=== PATIENT | male | born 1930 | race Caucasian/White ===

== ENCOUNTER 2016-05-29 10:46 | Outpatient (RCR) | payer MEDICARE, OTHER ==
--- OUTSIDE RECORDS SUMMARY | 2016-04-17 10:00 | XMS REPORT | Continuity of Care Document ---
Author Author [facility] Organization [facility] Address Unknown Phone Unavailable Care Team Providers Care Group Therapy Counselor Name Role Phone NO, LOCAL PHYSICIAN PCP Unavailable Insurance Providers Payer Name Policy Number Subscriber Name Relationship Wps Medicare [id number] Tessa Nix 18 Self / Same As Patient [employer] [employer] [id number] Tessa Nix 18 Self / Same As Patient Advance Directives Directive Response Recorded Date/Time Advance Directives Yes 08/07/14 7:10am Health Care Power of Photographic Spotter Y PT STATES HAS POWER OF CONTENT STRATEGY LEAD 7:10am Organ Donor No 08/07/14 7:10am Resuscitation Status Full Code 08/07/14 7:10am Problems Medical Problems Problem Onset Date Status Leukocytosis Unknown Active Cholecystitis, acute Unknown Active Leukocytosis Unknown Active Fall from slipping on wet surface Unknown Active Traumatic closed nondisplaced fracture of one rib of left side Unknown Active Sprain of left wrist Unknown Active Fall from slipping on wet surface Unknown Active Medications Medication Dose Route Sig Days/Qty Instructions Order Date Discontinued Date Status Metoprolol Succinate 04/05/08 11/16/12 Discontinued Simvastatin 04/05/08 11/16/12 Discontinued Omeprazole 04/05/08 11/01/12 Discontinued Aspirin 81 Mg PO DAILY 04/05/08 Active Lisinopril 10 04/05/08 11/16/12 Discontinued Multivitamins W-Minerals/Lut 1 Tab PO DAILY 12/05/10 Active Codeine Phos/Acetaminophen 1 Tab PO q 4 hours prn pain. 14 Qty 11/01/12 Discontinued Fish Oil 1,000 Mg PO TWICE A DAY 2000 in am 1000 pm 11/01/12 01/27/14 Discontinued Potassium 99 Mg PO DAILY 11/01/12 Active [Calcium/zinc/mag] 1 Tab PO DAILY 11/01/12 Active Lisinopril 10 Mg PO DAILY 11/16/12 Active Simvastatin 40 Mg PO DAILY 11/16/12 Active Metoprolol Succinate 50 Mg PO DAILY 11/16/12 11/16/12 Discontinued Metoprolol Succinate 50 Mg PO DAILY 11/16/12 Active Ca Cmb No.1/Vit D3/B-6/Fa/B12 1,000 Unit PO DAILY 11/16/12 Active Vitamin E Acid Succinate 100 Unit PO DAILY 11/16/12 05/05/14 Discontinued Gluc/Yousuf-Msm#1/C/Edd/Leno/Bor 1 Cap PO DAILY 11/16/12 Active [place] Ginseng Root Extract 100 Mg PO DAILY 11/16/12 Active Flaxseed/Omega3,6,9/Fatty Acid 2 Each PO DAILY 01/27/14 05/05/14 Discontinued Hydrocodone Bit/Acetaminophen 1-2 Each PO Q4 - 6H PRN PAIN 30 Qty TO [facility]. 01/27/14 05/05/14 Discontinued Vitamin E Acid Succinate 800 Unit PO DAILY 05/05/14 Active [place] Oil/[place]-3 Fatty Acids 2,000 Mg PO DAILY TAKES 2 (1000MG) CAPSULES 05/05/14 Active [Hydrocodone Bit/Acetaminophen] 1 Tab PO EVERY 4HRS PRN ABDOMINAL PAIN 30 Qty 05/06/14 07/11/14 Discontinued Garlic 1,500 Mg PO DAILY 05/30/14 Active Omeprazole 20 Mg PO DAILY 05/30/14 Active Lactobacillus Combo No.10 1 Each PO DAILY 05/30/14 Active Hydrocodone Bit/Acetaminophen 1 Tab PO EVERY 4HRS PRN PAIN 20 Qty 07/11 Active Docusate Sodium 100 Mg PO TWICE A DAY 30 Qty 07/11/14 Active Social History Social History Problem Response Recorded Date/Time Alcohol Use Denies Use 07/11/2014 10:01am Recreational Drug Use No 07/11/2014 10:01am Recent Foreign Travel No 08/07/2014 7:10am Smoking Status Former Smoker 08/07/2014 7:12am Do you dip or chew tobacco? No 08/07/2014 7:12am Query Response Start Date Stop Date Smoking Status Former Smoker Hospital Discharge Instructions No hospital discharge instructions. Plan of Care No plan of care. Functional Status No functional status results. Allergies, Adverse Reactions, Alerts Allergen Type Severity Reaction Status Last Updated GLUE ON J&J TAPE Allergy Unknown Active 05/05/14 Immunizations Name Given Type Date of Pneumonia Vaccine 11/17/11 Historical Date of Influenza Vaccine 04/28/14 Historical Vital Signs Acute Vital Signs Vital Response Date/Time Temperature (Fahrenheit) 97.9 degrees F (97.6 - 99.5) Temperature (Calculated Celsius) 36.25190 degrees C (36.4 - 37.5) Temperature Source Tympanic Pulse Rate (adult) 65 bpm (60 - 90) Respiratory Rate 20 bpm (12 - 24) O2 Sat by Pulse Oximetry 96 % (88 - 100) Blood Pressure 125/66 mm Hg Pain Pain Intensity 0 Height (Feet) 5 feet Height (Inches) 11.00 inches Height (Calculated Centimeters) 180.598180 cm Weight (Pounds) 180 pounds Weight (Ounces) 2.3 oz Weight (Calculated Grams) 46452.831 gm Weight (Calculated Kilograms) 81.316912 kilograms Calculated BMI 25.10 Results No known relevant diagnostic tests, laboratory data and/or discharge summary. Procedures No known history of procedures. Encounters Encounter Location Date/Time Registered Surgical Day Care [facility] 08/07/14 6:20am Registered Clinic [facility] 08/03/14 5:47am Departed Emergency Room [facility] 07/11/14 9:51am
[2016-04-17 11:08] LABS: BASOPHILS % (AUTO) 0 % (0-10); EOSINOPHILS # (AUTO) 0.1 10^3/uL (0.0-0.3); EOSINOPHILS % (AUTO) 1 % (0-10); LYMPHOCYTES # (AUTO) 0.9 X 10^3 (1.0-4.0); LYMPHOCYTES % (AUTO) 13 % (12-44); MEAN CORPUSCULAR HEMOGLOBIN 31 PG (25-34); MEAN CORPUSCULAR HGB CONC 34 G/DL (32-36); MEAN CORPUSCULAR VOLUME 91 FL (80-99); MEAN PLATELET VOLUME 10.2 FL (7.4-10.4); MONOCYTES # (AUTO) 0.8 X 10^3 (0.0-1.0); MONOCYTES % (AUTO) 12 % (0-12); NEUTROPHILS % (AUTO) 74 % (42-75); PLATELET COUNT 215 10^3/uL (130-400); RED BLOOD COUNT 4.73 10^6/uL (4.35-5.85); RED CELL DISTRIBUTION WIDTH 13.6 % (10.0-14.5); WHITE BLOOD COUNT 6.8 10^3/uL (4.3-11.0)
[2016-04-17 11:32] LABS: ALANINE AMINOTRANSFERASE 15 U/L (0-55); ANION GAP 10 MMOL/L (5-14); ASPARTATE AMINO TRANSFERASE 16 U/L (5-34); BILIRUBIN,TOTAL 0.4 MG/DL (0.1-1.0); BLOOD UREA NITROGEN 10 MG/DL (7-18); BUN/CREATININE RATIO 10; CALCIUM 8.7 MG/DL (8.5-10.1); CARBON DIOXIDE 21 MMOL/L (21-32); CHLORIDE 108 MMOL/L (98-107); GFR ESTIMATED > 60; GLUCOSE 115 MG/DL (70-105); LACTATE DEHYDROGENASE 165 U/L (125-220); POTASSIUM 4.2 MMOL/L (3.6-5.0); SODIUM 139 MMOL/L (135-145); TOTAL PROTEIN 5.8 G/DL (6.4-8.2)
[~2016-05-29] VITALS: Ht 177.8 cm; Wt 78.0 kg
[~2016-05-29 10:46] MED LIST: ACET1TAB43 PO; ACETAMINOPHEN 500 MG TAB (TYLENOL) CANCER CTR PO PRN; ASP81TEC PO; CA C1TAB26 PO; CALCIUM PO; DCS100C PO; FLAX1CAP4 PO; GARL1500 PO; GLUC-138 PO; HYDR-1231 PO; HYDR-3454 PO; Hydrocodone Bit/Acetaminophen PO; KORE100C3 PO; LACT1CAP69 PO; LISI5TAB14; LSNP10T PO; MAG PO; METO-272 PO; METO50TA7; METO50TA7 PO; MULT-850 PO; OMEP-10; OMEP-10 PO; OMG1KC PO; POTA99TA7 PO; RIVA1TAB PO; SALM1CAP4 PO; SIMV40TA4 PO; SMV20T; TRAM50TA2 PO; VITA100T6 PO; VITA400T7 PO; ZINC PO; diphenhydrAMINE 25 MG TAB (BENADRYL) CANCER CENTER PO SCH; riTUXimab 500 MG, riTUXimab FOR IV INJ CONC 200 MG in NS (IVPB) CANCER CENTER 163 ML IV SCH
== END 2016-07-16 | disposition home or self-care (01) ==
LOC: ONC 10:46
PROVIDERS: ATTEND Internal Medicine Hematology & Oncology
DX: C83.10 Mantle cell lymphoma, unspecified site (principal); Z85.038 Personal history of other malignant neoplasm of large intestine; D64.9 Anemia, unspecified; D69.6 Thrombocytopenia, unspecified; I25.10 Atherosclerotic heart disease of native coronary artery without angina pectoris; Z95.1 Presence of aortocoronary bypass graft; Z79.899 Other long term (current) drug therapy; Z45.2 Encounter for adjustment and management of vascular access device
CPT/HCPCS: 36591; 80053; 83615; 85025; 96413; 96523; 99213

== ENCOUNTER 2016-10-09 12:45 | Outpatient (RCR) | payer MEDICARE, OTHER ==
--- OUTSIDE RECORDS SUMMARY | 2016-07-17 12:42 | XMS REPORT | Continuity of Care Document ---
Author Author [facility] Organization [facility] Address Unknown Phone Unavailable Care Team Providers Care Heavy Threader Name Role Phone NO, LOCAL PHYSICIAN PCP Unavailable Insurance Providers Payer Name Policy Number Subscriber Name Relationship Wps Medicare [id number] Tessa Nix 20 Self / Same As Patient [place] [employer] [id number] Tessa Nix 20 Self / Same As Patient Advance Directives Directive Response Recorded Date/Time Advance Directives Yes 08/07/14 7:10am Health Care Power of Occupational Medicine Physician Y PT STATES HAS POWER OF CUSTOMER ACQUISITION SPECIALIST 7:10am Organ Donor No 08/07/14 7:10am Resuscitation [...] Gluc/Yousuf-Msm#1/C/Edd/Leno/Bor 1 Cap PO DAILY 11/16/12 Active [place] Ginseng Root Extract 100 Mg PO DAILY 11/16/12 Active Flaxseed/Omega3,6,9/Fatty Acid 2 Each PO DAILY 01/27/14 05/05/14 Discontinued Hydrocodone Bit/Acetaminophen 1-2 Each PO Q4 - 6H PRN PAIN 30 Qty TO [facility]. 01/27/14 05/05/14 Discontinued Vitamin E Acid Succinate 800 Unit PO DAILY 05/05/14 Active [place] Oil/[place]-3 Fatty Acids 2,000 Mg PO DAILY TAKES [...] F (97.6 - 99.5) Temperature (Calculated Celsius) 36.60727 degrees C (36.4 - 37.5) Temperature Source Tympanic Pulse Rate (adult) 65 bpm (60 - 90) Respiratory Rate 20 bpm (12 - 24) O2 Sat by Pulse Oximetry 96 % (88 - 100) Blood Pressure 125/66 mm Hg Pain Pain Intensity 0 Height (Feet) 5 feet Height (Inches) 11.00 inches Height (Calculated Centimeters) 180.380959 cm Weight (Pounds) 180 pounds Weight (Ounces) 2.3 oz Weight (Calculated Grams) 94699.831 gm Weight (Calculated Kilograms) 81.745830 kilograms Calculated BMI 25.10 Results No known relevant diagnostic tests, laboratory data and/or discharge summary. Procedures No known history of procedures. Encounters Encounter Location Date/Time Registered Surgical Day Care [facility] 08/07/14 6:20am Registered Clinic [facility] 08/03/14 5:47am Departed Emergency Room [facility] 07/11/14 9:51am
[2016-07-17 12:59] LABS: BASOPHILS % (AUTO) 0 % (0-10); EOSINOPHILS # (AUTO) 0.1 10^3/uL (0.0-0.3); EOSINOPHILS % (AUTO) 1 % (0-10); LYMPHOCYTES # (AUTO) 1.3 X 10^3 (1.0-4.0); LYMPHOCYTES % (AUTO) 17 % (12-44); MEAN CORPUSCULAR HEMOGLOBIN 30 PG (25-34); MEAN CORPUSCULAR HGB CONC 33 G/DL (32-36); MEAN CORPUSCULAR VOLUME 90 FL (80-99); MEAN PLATELET VOLUME 9.7 FL (7.4-10.4); MONOCYTES # (AUTO) 0.8 X 10^3 (0.0-1.0); MONOCYTES % (AUTO) 10 % (0-12); NEUTROPHILS # (AUTO) 5.5 X 10^3 (1.8-7.8); NEUTROPHILS % (AUTO) 71 % (42-75); PLATELET COUNT 258 10^3/uL (130-400); RED CELL DISTRIBUTION WIDTH 13.5 % (10.0-14.5); WHITE BLOOD COUNT 7.7 10^3/uL (4.3-11.0)
[2016-07-17 13:22] LABS: ALANINE AMINOTRANSFERASE 15 U/L (0-55); ANION GAP 9 MMOL/L (5-14); ASPARTATE AMINO TRANSFERASE 18 U/L (5-34); BILIRUBIN,TOTAL 0.4 MG/DL (0.1-1.0); BLOOD UREA NITROGEN 12 MG/DL (7-18); BUN/CREATININE RATIO 14; CALCIUM 8.6 MG/DL (8.5-10.1); CARBON DIOXIDE 23 MMOL/L (21-32); CHLORIDE 108 MMOL/L (98-107); CREATININE SERUM 0.86 MG/DL (0.60-1.30); GFR ESTIMATED > 60; GLUCOSE 93 MG/DL (70-105); LACTATE DEHYDROGENASE 182 U/L (125-220); POTASSIUM 4.3 MMOL/L (3.6-5.0); SODIUM 140 MMOL/L (135-145); TOTAL PROTEIN 5.9 G/DL (6.4-8.2)
[2016-10-09 13:15] LABS: BASOPHILS % (AUTO) 0 % (0-10); EOSINOPHILS # (AUTO) 0.2 10^3/uL (0.0-0.3); EOSINOPHILS % (AUTO) 2 % (0-10); LYMPHOCYTES # (AUTO) 1.5 X 10^3 (1.0-4.0); LYMPHOCYTES % (AUTO) 20 % (12-44); MEAN CORPUSCULAR HEMOGLOBIN 30 PG (25-34); MEAN CORPUSCULAR HGB CONC 33 G/DL (32-36); MEAN CORPUSCULAR VOLUME 90 FL (80-99); MEAN PLATELET VOLUME 10.2 FL (7.4-10.4); MONOCYTES # (AUTO) 0.7 X 10^3 (0.0-1.0); MONOCYTES % (AUTO) 10 % (0-12); NEUTROPHILS # (AUTO) 4.9 X 10^3 (1.8-7.8); NEUTROPHILS % (AUTO) 68 % (42-75); PLATELET COUNT 243 10^3/uL (130-400); RED BLOOD COUNT 4.79 10^6/uL (4.35-5.85); RED CELL DISTRIBUTION WIDTH 14.4 % (10.0-14.5); WHITE BLOOD COUNT 7.3 10^3/uL (4.3-11.0)
[2016-10-09] MEDS ORDERED: ACETAMINOPHEN 325 MG TAB (TYLENOL) CANCER CTR ONE (13:24)
[2016-10-09 13:39] LABS: ALANINE AMINOTRANSFERASE 51 U/L (0-55); ALBUMIN 3.6 G/DL (3.2-4.5); ANION GAP 4 MMOL/L (5-14); ASPARTATE AMINO TRANSFERASE 47 U/L (5-34); BILIRUBIN,TOTAL 0.4 MG/DL (0.1-1.0); BLOOD UREA NITROGEN 17 MG/DL (7-18); BUN/CREATININE RATIO 18; CALCIUM 8.2 MG/DL (8.5-10.1); CARBON DIOXIDE 27 MMOL/L (21-32); CHLORIDE 111 MMOL/L (98-107); CREATININE SERUM 0.97 MG/DL (0.60-1.30); GFR ESTIMATED > 60; GLUCOSE 122 MG/DL (70-105); LACTATE DEHYDROGENASE 205 U/L (125-220); POTASSIUM 4.3 MMOL/L (3.6-5.0); SODIUM 142 MMOL/L (135-145); TOTAL PROTEIN 5.7 G/DL (6.4-8.2)
== END 2016-10-15 | disposition home or self-care (01) ==
LOC: ONC 12:45
PROVIDERS: ATTEND Internal Medicine Hematology & Oncology
DX: Z51.11 Encounter for antineoplastic chemotherapy (principal); C83.10 Mantle cell lymphoma, unspecified site; Z85.038 Personal history of other malignant neoplasm of large intestine; D64.9 Anemia, unspecified; D69.6 Thrombocytopenia, unspecified; I25.10 Atherosclerotic heart disease of native coronary artery without angina pectoris; Z95.1 Presence of aortocoronary bypass graft; Z79.899 Other long term (current) drug therapy
CPT/HCPCS: 36591; 80053; 83615; 85025; 96413; 96523; 99213

== ENCOUNTER 2016-10-26 09:21 | Emergency (ER) | payer MEDICARE, OTHER ==
[~2016-10-26] VITALS: Ht 177.8 cm; Wt 90.7 kg
[~2016-10-26 09:21] MED LIST changes: -ACETAMINOPHEN 500 MG TAB (TYLENOL) CANCER CTR PO PRN; -diphenhydrAMINE 25 MG TAB (BENADRYL) CANCER CENTER PO SCH; -riTUXimab 500 MG, riTUXimab FOR IV INJ CONC 200 MG in NS (IVPB) CANCER CENTER 163 ML IV SCH
--- NOTE | 2016-10-26 09:42 | ED Upper Extremity ---
General Chief Complaint: Upper Extremity Stated Complaint: R HAND KNUCKLE INJ Nursing Triage Note: c/o pain to right hand. 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 Nursing Sepsis Screen: No Definite Risk Source: patient (LIMITED HISTORIAN / DEMENTIAL), family ( GIVES HISTORY) History of Present Illness Time seen by provider: 09:29 Initial Comments C/O RIGHT HAND PAIN AND SWELLING SINCE YESTERDAY STATES GRANDSON WAS WITH PT WHEN HE WAS WORKING ON A LAWNMOWER AND A SONIA BROKE AND HIT HIS RIGHT HAND --OCCURRED AT HOME YESTERDAY PT THINKS IT WAS FROM PULLING WEEDS, BUT STATES HE WAS NOT. NO PRIOR INJURY TO THIS HAND NO PARESTHESIAS OR MOTOR DEFICITS PCP: DR. DE LA FUENTE, [facility] Allergies and Home Medications Allergies Uncoded Allergies: GLUE ON J&J TAPE (Allergy, Unknown, 05/05/14) Home Medications Aspirin 81 Mg Tabec, 81 MG PO DAILY, (Reported) Ca Cmb No.1/Vit D3/B-6/Fa/B12 1 Each Tablet, 1,000 UNIT PO DAILY, (Reported) Docusate Sodium 100 Mg Cap, 100 MG PO BID, #30 Prescribed by: ELBERT MERRILL on 07/11/14 1128 Garlic 1,500 Mg Capsule, 1,500 MG PO DAILY, (Reported) Gluc/Yousuf-Msm#1/C/Edd/Leno/Bor 1 Each Tablet, 1 CAP PO DAILY, (Reported) Hydrocodone Bit/Acetaminophen 1 Tab Tablet, 1 TAB PO Q4H PRN for PAIN, #20 Prescribed by: ELBERT MERRILL on 07/11/14 1128 [place] Ginseng Root Extract 100 Mg Capsule, 100 MG PO DAILY, (Reported) Lactobacillus Combo No.10 1 Each Capsule, 1 EACH PO DAILY, (Reported) Lisinopril 10 Mg Tab, 10 MG PO DAILY, (Reported) Metoprolol Succinate 50 Mg Tab.sr.24h, 50 MG PO DAILY, (Reported) Multivitamins W-Minerals/Lut 1 Each Tablet, 1 TAB PO DAILY, (Reported) Omeprazole 20 Mg Capsule.dr, 20 MG PO DAILY, (Reported) Potassium 99 Mg Tablet, 99 MG PO DAILY, (Reported) Rivaroxaban 1 Each Tab.ds.pk, 1 EACH PO UD, #51 15mg by mouth twice daily x 21 days then 20mg by mouth daily Prescribed by: ELBERT MERRILL on 07/23/152127 [place] Oil/[place]-3 Fatty Acids 1 Each Capsule, 2,000 MG PO DAILY, (Reported) TAKES 2 (1000MG) CAPSULES Simvastatin 40 Mg Tablet, 40 MG PO DAILY, (Reported) Tramadol HCl 50 Mg Tablet, 50 MG PO Q4H PRN for PAIN, #14 Ref 0 Prescribed by: GIUSEPPE RASCON on 09/28/15 1324 Vitamin E Acid Succinate 400 Unit Tablet, 800 UNIT PO DAILY, (Reported) TAKES 2 (400 UNITS) TABLETS [Calcium/zinc/mag] , 1 TAB PO DAILY, (Reported) Constitutional: no symptoms reported Musculoskeletal: see HPI Skin: no symptoms reported Psychiatric/Neurological: No Symptoms Reported Past Zznsmlv-Ziquyr-Ufztjo Hx Patient Social History Alcohol Use: Denies Use Recreational Drug Use: No Smoking Status: Never a Smoker Former Smoker/When Quit: Jul 13, 1983 Recent Foreign Travel: No Contact w/Someone Who Travel: No Recent Infectious Disease Expo: No Immunizations Up To Date Date of Pneumonia Vaccine: November 17, 2011 Date of Influenza Vaccine: Apr 28, 2014 Seasonal Allergies Seasonal Allergies: No Surgeries HX Surgeries: Yes (COLON RESECTION, 5 BYPASS SX, CAROTID ENDARTERECTOMY, port, BCC excision) Surgeries: Abdominal, Cardiac, CABG, Gallbladder, Vascular Surgery Respiratory Hx Respiratory Disorders: Yes (HAD A SPONTANEOUS PNEUMOTHORAX WHEN HE WAS IN THE WAR IN [place]) Cardiovascular Hx Cardiac Disorders: Yes (HAS HAD A HX OF TACHYCARDIA) Cardiac Disorders: Coronary Artery Disease, High Cholesterol, Hypertension Neurological Hx Neurological Disorders: Yes (MEMORY PROBLEMS) Neurological Disorders: Dementia Reproductive System Hx Reproductive Disorders: No Genitourinary Hx Genitourinary Disorders: No Gastrointestinal Hx Gastrointestinal Disorders: Yes (COLON CANCER) Gastrointestinal Disorders: Diverticulosis Musculoskeletal Hx Musculoskeletal Disorders: No Endocrine Hx Endocrine Disorders: No HEENT HX ENT Disorders: Yes (MISSING TEETH) Cancer Hx Cancer: Yes Cancer: Lymphoma, Colon Psychosocial Hx Psychiatric Problems: No Integumentary HX Skin/Integumentary Disorder: No Blood Transfusions Hx Blood Disorders: No Adverse Reaction to a Blood Tr: No Family Medical History Family Medial History: FH: heart disease 19 FATHER 19 MOTHER HEART Physical Exam Vital Signs Vital Sign - Last 12Hours 10/26/16 09:29 Temp 97.5 Pulse 76 Resp 16 B/P (MAP) 188/83 Pulse Ox 97 O2 Delivery Room Air Capillary Refill : Less Than 3 Seconds General Appearance: WD/WN, no apparent distress Elbow/Forearm: normal inspection Wrist: Yes normal inspection Hand: Right (TENDERNESS OVER RIGHT 4TH MCP JOINT, MILD TO MODERATE TENDERNESS OF DORSUM OF RIGHT HAND. NO BRUISING OR SKIN DISCOLORATION. ), bone tenderness, soft tissue tenderness, swelling Neurologic/Tendon: normal sensation, normal motor functions, normal tendon functions Neurologic/Psychiatric: enterostomal nurse II-XII nml as tested, no motor/sensory deficits, alert, normal mood/affect, oriented x 3 (POOR MEMORY) Skin: normal color, warm/dry Progress/Results/Core Measures Results/Orders My Orders Orders - JUAN MIGUEL LR DO Hand, Right, 3 Views (10/26/16 09:29) Vital Signs/I&O Vital Sign - Last 12Hours 10/26/16 09:29 Temp 97.5 Pulse 76 Resp 16 B/P (MAP) 188/83 Pulse Ox 97 O2 Delivery Room Air Blood Pressure Mean: 118 Diagnostic Imaging Comments XRAYS RIGHT HAND--METALLIC FB. BETWEEN THUMB AND INDEX FINGER. OTHERWISE NO ACUTE PROCESS--PER RADIOLOGIST REPORT @ 1027 Reviewed: Reviewed by Me Departure Impression Impression: Primary Impression: Contusion of right hand Disposition: HOME, SELF-CARE Condition: Stable Departure-Patient Inst. Referrals: NO,LOCAL PHYSICIAN (PCP/Family) Primary Care Physician Patient Instructions: Contusion (DC) Add. Discharge Instructions: ICE TO AREA AT 20 MINUTE INTERVALS ELEVATE HAND MUCH POSSIBLE TYLENOL AND MOTRIN NEEDED FOR PAIN FOLLOW UP WITH YOUR DR IN 1 WEEK IF NO BETTER All discharge instructions reviewed with patient and/or family. Voiced understanding. JUAN MIGUEL LR DO Oct 26, 2016 09:42
--- NOTE | 2016-10-26 10:14 | Diagnostic Imaging Report ---
EXAM: HAND, RIGHT, 3 VIEWS INDICATION: Right fourth metacarpal tenderness. COMPARISON: None. FINDINGS: Scattered degenerative changes in the IP joints are most marked in the right fifth PIP. No acute fractures. There is a metallic foreign body along the radial aspect of the right second distal metacarpal. IMPRESSION: Metallic foreign body adjacent to the radial aspect of the right second distal metacarpal. No acute osseous findings. Dictated by: Dictated on workstation # [id number]
[2016-10-26 10:32] VITALS: BP 172/80
== END 2016-10-26 10:32 | disposition home or self-care (01) ==
LOC: EDUNIT# 09:21 → ER 09:23
DX: S60.221A Contusion of right hand, initial encounter (principal); I10 Essential (primary) hypertension; I25.10 Atherosclerotic heart disease of native coronary artery without angina pectoris; Z79.899 Other long term (current) drug therapy; Z79.82 Long term (current) use of aspirin; Z95.1 Presence of aortocoronary bypass graft; W22.8XXA Striking against or struck by other objects, initial encounter; Y99.8 Other external cause status
CPT/HCPCS: 73130; 99282

== ENCOUNTER 2017-01-29 08:40 | Outpatient (RCR) | payer MEDICARE, OTHER ==
[2017-01-01 10:14] LABS: BASOPHILS % (AUTO) 0 % (0-10); EOSINOPHILS # (AUTO) 0.2 10^3/uL (0.0-0.3); EOSINOPHILS % (AUTO) 2 % (0-10); LYMPHOCYTES # (AUTO) 1.3 X 10^3 (1.0-4.0); LYMPHOCYTES % (AUTO) 15 % (12-44); MEAN CORPUSCULAR HEMOGLOBIN 30 PG (25-34); MEAN CORPUSCULAR HGB CONC 33 G/DL (32-36); MEAN CORPUSCULAR VOLUME 91 FL (80-99); MEAN PLATELET VOLUME 10.1 FL (7.4-10.4); MONOCYTES # (AUTO) 1.3 X 10^3 (0.0-1.0); MONOCYTES % (AUTO) 14 % (0-12); NEUTROPHILS % (AUTO) 69 % (42-75); PLATELET COUNT 259 10^3/uL (130-400); RED BLOOD COUNT 4.87 10^6/uL (4.35-5.85); RED CELL DISTRIBUTION WIDTH 13.7 % (10.0-14.5); WHITE BLOOD COUNT 8.8 10^3/uL (4.3-11.0)
[2017-01-01 10:36] LABS: ALANINE AMINOTRANSFERASE 12 U/L (0-55); ALBUMIN 3.8 GM/DL (3.2-4.5); ANION GAP 8 MMOL/L (5-14); ASPARTATE AMINO TRANSFERASE 17 U/L (5-34); BILIRUBIN,TOTAL 0.6 MG/DL (0.1-1.0); BLOOD UREA NITROGEN 15 MG/DL (7-18); BUN/CREATININE RATIO 17 (0-20); CALCIUM 9.1 MG/DL (8.5-10.1); CARBON DIOXIDE 26 MMOL/L (21-32); CHLORIDE 108 MMOL/L (98-107); GFR ESTIMATED > 60; GLUCOSE 106 MG/DL (70-105); HEMOLYSIS 12 (-100-29); ICTERUS 0.6 (-100-1.9); LACTATE DEHYDROGENASE 226 U/L (125-220); LIPEMIA 15 (-100-49); POTASSIUM 4.3 MMOL/L (3.6-5.0); SODIUM 142 MMOL/L (135-145); TOTAL PROTEIN 6.2 GM/DL (6.4-8.2)
[~2017-01-29] VITALS: Ht 177.8 cm; Wt 75.3 kg
[~2017-01-29 08:40] MED LIST changes: +ACETAMINOPHEN 325 MG TAB (TYLENOL) CANCER CTR ONE; +ACETAMINOPHEN 325 MG TAB (TYLENOL) CANCER CTR PO PRN; +ACETAMINOPHEN 500 MG TAB (TYLENOL) CANCER CTR PO PRN; +diphenhydrAMINE 25 MG TAB (BENADRYL) CANCER CENTER PO SCH; +riTUXimab 500 MG, riTUXimab FOR IV INJ CONC 200 MG in NS (IVPB) CANCER CENTER 163 ML IV SCH
== END 2017-02-18 | disposition home or self-care (01) ==
LOC: ONC 08:40
PROVIDERS: ATTEND Internal Medicine Hematology & Oncology
DX: C83.10 Mantle cell lymphoma, unspecified site (principal); Z85.038 Personal history of other malignant neoplasm of large intestine; D64.9 Anemia, unspecified; D69.6 Thrombocytopenia, unspecified; I25.10 Atherosclerotic heart disease of native coronary artery without angina pectoris; Z95.1 Presence of aortocoronary bypass graft; Z79.899 Other long term (current) drug therapy; Z45.2 Encounter for adjustment and management of vascular access device
CPT/HCPCS: 36591; 80053; 82378; 83615; 85025; 96413; 96523

== ENCOUNTER 2017-03-26 09:09 | Outpatient (RCR) | payer MEDICARE, OTHER ==
[~2017-03-26 09:09] MED LIST changes: -ACETAMINOPHEN 325 MG TAB (TYLENOL) CANCER CTR ONE; -ACETAMINOPHEN 325 MG TAB (TYLENOL) CANCER CTR PO PRN; -ACETAMINOPHEN 500 MG TAB (TYLENOL) CANCER CTR PO PRN; -diphenhydrAMINE 25 MG TAB (BENADRYL) CANCER CENTER PO SCH; -riTUXimab 500 MG, riTUXimab FOR IV INJ CONC 200 MG in NS (IVPB) CANCER CENTER 163 ML IV SCH
== END 2017-04-11 | disposition home or self-care (01) ==
LOC: ONC 09:09
PROVIDERS: ATTEND Internal Medicine Hematology & Oncology
DX: C83.10 Mantle cell lymphoma, unspecified site (principal); Z85.038 Personal history of other malignant neoplasm of large intestine; D64.9 Anemia, unspecified; D69.6 Thrombocytopenia, unspecified; I25.10 Atherosclerotic heart disease of native coronary artery without angina pectoris; Z95.1 Presence of aortocoronary bypass graft; Z79.899 Other long term (current) drug therapy; Z45.2 Encounter for adjustment and management of vascular access device
CPT/HCPCS: 96523

== ENCOUNTER 2017-04-23 12:17 | Outpatient (RCR) | payer MEDICARE, OTHER | END 2017-06-16 11:29 | disposition home or self-care (01) | LOC: ONC 12:17 | PROVIDERS: ATTEND Internal Medicine Hematology & Oncology | DX: C83.10 Mantle cell lymphoma, unspecified site (principal); Z85.038 Personal history of other malignant neoplasm of large intestine; D64.9 Anemia, unspecified; D69.6 Thrombocytopenia, unspecified; I25.10 Atherosclerotic heart disease of native coronary artery without angina pectoris; Z95.1 Presence of aortocoronary bypass graft; Z79.899 Other long term (current) drug therapy; Z45.2 Encounter for adjustment and management of vascular access device | CPT/HCPCS: 96523 ==

== ENCOUNTER → 2017-04-28 | Outpatient (CLI) | payer MEDICARE, OTHER | LOC: CARD 11:54 | PROVIDERS: ATTEND Nurse Practitioner Family | DX: I25.10 Atherosclerotic heart disease of native coronary artery without angina pectoris (principal); I10 Essential (primary) hypertension; E78.4 Other hyperlipidemia; I34.0 Nonrheumatic mitral (valve) insufficiency | CPT/HCPCS: 93306 ==

== ENCOUNTER 2017-05-21 09:31 | Outpatient (RCR) | payer MEDICARE, OTHER | END 2017-06-16 11:32 | disposition home or self-care (01) | LOC: ONC 09:31 | PROVIDERS: ATTEND Internal Medicine Hematology & Oncology | DX: C83.10 Mantle cell lymphoma, unspecified site (principal); Z85.038 Personal history of other malignant neoplasm of large intestine; D64.9 Anemia, unspecified; D69.6 Thrombocytopenia, unspecified; I25.10 Atherosclerotic heart disease of native coronary artery without angina pectoris; Z95.1 Presence of aortocoronary bypass graft; Z79.899 Other long term (current) drug therapy; Z45.2 Encounter for adjustment and management of vascular access device | CPT/HCPCS: 96523 ==

== ENCOUNTER 2017-09-03 10:06 | Outpatient (RCR) | payer MEDICARE, OTHER ==
[2017-06-18 14:28] LABS: BASOPHILS % (AUTO) 0 % (0-10); EOSINOPHILS # (AUTO) 0.2 10^3/uL (0.0-0.3); EOSINOPHILS % (AUTO) 2 % (0-10); HEMATOCRIT 43 % (40-54); HEMOGLOBIN 14.1 G/DL (13.3-17.7); LYMPHOCYTES # (AUTO) 1.6 X 10^3 (1.0-4.0); LYMPHOCYTES % (AUTO) 15 % (12-44); MEAN CORPUSCULAR HEMOGLOBIN 29 PG (25-34); MEAN CORPUSCULAR HGB CONC 33 G/DL (32-36); MEAN CORPUSCULAR VOLUME 90 FL (80-99); MEAN PLATELET VOLUME 9.6 FL (7.4-10.4); MONOCYTES % (AUTO) 9 % (0-12); NEUTROPHILS # (AUTO) 7.8 X 10^3 (1.8-7.8); NEUTROPHILS % (AUTO) 75 % (42-75); PLATELET COUNT 302 10^3/uL (130-400); RED CELL DISTRIBUTION WIDTH 14.1 % (10.0-14.5); WHITE BLOOD COUNT 10.5 10^3/uL (4.3-11.0)
[2017-06-18 14:47] LABS: ALANINE AMINOTRANSFERASE 10 U/L (0-55); ALBUMIN 3.7 GM/DL (3.2-4.5); ALKALINE PHOSPHATASE 97 U/L (40-136); BILIRUBIN,TOTAL 0.3 MG/DL (0.1-1.0); BUN/CREATININE RATIO 12; CALCIUM 8.9 MG/DL (8.5-10.1); CARBON DIOXIDE 26 MMOL/L (21-32); CHLORIDE 107 MMOL/L (98-107); CREATININE SERUM 0.84 MG/DL (0.60-1.30); GFR ESTIMATED > 60; GLUCOSE 125 MG/DL (70-105); POTASSIUM 4.2 MMOL/L (3.6-5.0); SODIUM 139 MMOL/L (135-145); TOTAL PROTEIN 6.5 GM/DL (6.4-8.2)
== END 2017-09-16 | disposition home or self-care (01) ==
LOC: ONC 10:06
PROVIDERS: ATTEND Internal Medicine Hematology & Oncology
DX: C83.10 Mantle cell lymphoma, unspecified site (principal); Z85.038 Personal history of other malignant neoplasm of large intestine; D64.9 Anemia, unspecified; D69.6 Thrombocytopenia, unspecified; I25.10 Atherosclerotic heart disease of native coronary artery without angina pectoris; Z95.1 Presence of aortocoronary bypass graft; Z79.899 Other long term (current) drug therapy
CPT/HCPCS: 36591; 80053; 83615; 85025; 96523

== ENCOUNTER → 2017-10-06 | Outpatient (CLI) | payer MEDICARE, OTHER ==
[2017-10-06 09:42] LABS: ALANINE AMINOTRANSFERASE 51 U/L (0-55); ALKALINE PHOSPHATASE 187 U/L (40-136); BILIRUBIN,TOTAL 0.6 MG/DL (0.1-1.0); BUN/CREATININE RATIO 12; CALCIUM 9.4 MG/DL (8.5-10.1); CARBON DIOXIDE 28 MMOL/L (21-32); CHLORIDE 107 MMOL/L (98-107); CHOLESTEROL 194 MG/DL (< 200); CREATININE SERUM 0.84 MG/DL (0.60-1.30); GFR ESTIMATED > 60; GLUCOSE 99 MG/DL (70-105); HDL CHOLESTEROL 38 MG/DL (40-60); POTASSIUM 4.4 MMOL/L (3.6-5.0); SODIUM 141 MMOL/L (135-145); TOTAL PROTEIN 6.2 GM/DL (6.4-8.2); TRIGLYCERIDES 111 MG/DL (<150); VLDL CHOLESTEROL 22 MG/DL (5-40)
== END ==
LOC: LAB 08:57
PROVIDERS: ATTEND Nurse Practitioner Family
DX: I25.10 Atherosclerotic heart disease of native coronary artery without angina pectoris (principal); E78.5 Hyperlipidemia, unspecified; I34.0 Nonrheumatic mitral (valve) insufficiency; I10 Essential (primary) hypertension
CPT/HCPCS: 36415; 80053; 80061

== ENCOUNTER 2017-10-16 10:49 | Outpatient (RCR) | payer MEDICARE, OTHER | END 2017-11-11 16:28 | disposition home or self-care (01) | LOC: ONC 10:49 | PROVIDERS: ATTEND Internal Medicine Hematology & Oncology | DX: C83.10 Mantle cell lymphoma, unspecified site (principal); Z85.038 Personal history of other malignant neoplasm of large intestine; D64.9 Anemia, unspecified; D69.6 Thrombocytopenia, unspecified; I25.10 Atherosclerotic heart disease of native coronary artery without angina pectoris; Z95.1 Presence of aortocoronary bypass graft; Z79.899 Other long term (current) drug therapy; Z45.2 Encounter for adjustment and management of vascular access device | CPT/HCPCS: 96523 ==

== ENCOUNTER 2018-02-04 09:27 | Outpatient (RCR) | payer MEDICARE, OTHER ==
[2017-11-12 09:29] LABS: BASOPHILS % (AUTO) 0 % (0-10); EOSINOPHILS # (AUTO) 0.1 10^3/uL (0.0-0.3); EOSINOPHILS % (AUTO) 1 % (0-10); HEMATOCRIT 44 % (40-54); HEMOGLOBIN 14.6 G/DL (13.3-17.7); LYMPHOCYTES # (AUTO) 1.6 X 10^3 (1.0-4.0); LYMPHOCYTES % (AUTO) 23 % (12-44); MEAN CORPUSCULAR HEMOGLOBIN 30 PG (25-34); MEAN CORPUSCULAR HGB CONC 33 G/DL (32-36); MEAN CORPUSCULAR VOLUME 90 FL (80-99); MEAN PLATELET VOLUME 9.8 FL (7.4-10.4); MONOCYTES # (AUTO) 0.9 X 10^3 (0.0-1.0); MONOCYTES % (AUTO) 13 % (0-12); NEUTROPHILS # (AUTO) 4.2 X 10^3 (1.8-7.8); NEUTROPHILS % (AUTO) 62 % (42-75); PLATELET COUNT 211 10^3/uL (130-400); RED BLOOD COUNT 4.92 10^6/uL (4.35-5.85); RED CELL DISTRIBUTION WIDTH 14.7 % (10.0-14.5); WHITE BLOOD COUNT 6.7 10^3/uL (4.3-11.0)
[2017-11-12 09:48] LABS: ALANINE AMINOTRANSFERASE 66 U/L (0-55); ALBUMIN 3.8 GM/DL (3.2-4.5); ALKALINE PHOSPHATASE 178 U/L (40-136); BILIRUBIN,TOTAL 0.6 MG/DL (0.1-1.0); BUN/CREATININE RATIO 13; CALCIUM 8.5 MG/DL (8.5-10.1); CARBON DIOXIDE 26 MMOL/L (21-32); CHLORIDE 111 MMOL/L (98-107); CREATININE SERUM 0.86 MG/DL (0.60-1.30); GFR ESTIMATED > 60; GLUCOSE 110 MG/DL (70-105); POTASSIUM 4.3 MMOL/L (3.6-5.0); SODIUM 143 MMOL/L (135-145); TOTAL PROTEIN 5.7 GM/DL (6.4-8.2)
== END 2018-02-10 | disposition home or self-care (01) ==
LOC: ONC 09:27
PROVIDERS: ATTEND Internal Medicine Hematology & Oncology
DX: C83.10 Mantle cell lymphoma, unspecified site (principal); Z85.038 Personal history of other malignant neoplasm of large intestine; D64.9 Anemia, unspecified; D69.6 Thrombocytopenia, unspecified; I25.10 Atherosclerotic heart disease of native coronary artery without angina pectoris; Z95.1 Presence of aortocoronary bypass graft; Z79.899 Other long term (current) drug therapy
CPT/HCPCS: 36415; 36591; 80053; 82378; 83615; 85025; 96523

== ENCOUNTER 2018-03-19 10:03 | Outpatient (RCR) | payer MEDICARE, OTHER | END 2018-04-11 | disposition home or self-care (01) | LOC: ONC 10:03 | PROVIDERS: ATTEND Internal Medicine Hematology & Oncology | DX: C83.10 Mantle cell lymphoma, unspecified site (principal); Z85.038 Personal history of other malignant neoplasm of large intestine; D64.9 Anemia, unspecified; D69.6 Thrombocytopenia, unspecified; I25.10 Atherosclerotic heart disease of native coronary artery without angina pectoris; Z95.1 Presence of aortocoronary bypass graft; Z79.899 Other long term (current) drug therapy | CPT/HCPCS: 96523 ==

== ENCOUNTER 2018-06-10 08:50 | Outpatient (RCR) | payer MEDICARE, OTHER ==
[2018-06-10 09:15] LABS: BASOPHILS % (AUTO) 0 % (0-10); EOSINOPHILS # (AUTO) 0.1 10^3/uL (0.0-0.3); EOSINOPHILS % (AUTO) 1 % (0-10); HEMATOCRIT 44 % (40-54); LYMPHOCYTES # (AUTO) 1.4 X 10^3 (1.0-4.0); LYMPHOCYTES % (AUTO) 16 % (12-44); MEAN CORPUSCULAR HEMOGLOBIN 29 PG (25-34); MEAN CORPUSCULAR HGB CONC 32 G/DL (32-36); MEAN CORPUSCULAR VOLUME 91 FL (80-99); MONOCYTES % (AUTO) 12 % (0-12); NEUTROPHILS % (AUTO) 71 % (42-75); PLATELET COUNT 224 10^3/uL (130-400); RED BLOOD COUNT 4.77 10^6/uL (4.35-5.85); RED CELL DISTRIBUTION WIDTH 14.5 % (10.0-14.5); WHITE BLOOD COUNT 8.4 10^3/uL (4.3-11.0)
[2018-06-10 09:33] LABS: ALANINE AMINOTRANSFERASE 13 U/L (0-55); ALBUMIN 3.8 GM/DL (3.2-4.5); ALKALINE PHOSPHATASE 108 U/L (40-136); BILIRUBIN,TOTAL 0.8 MG/DL (0.1-1.0); BUN/CREATININE RATIO 19; CALCIUM 8.9 MG/DL (8.5-10.1); CARBON DIOXIDE 24 MMOL/L (21-32); CHLORIDE 109 MMOL/L (98-107); CREATININE SERUM 0.85 MG/DL (0.60-1.30); GFR ESTIMATED > 60; GLUCOSE 108 MG/DL (70-105); POTASSIUM 4.3 MMOL/L (3.6-5.0); SODIUM 143 MMOL/L (135-145); TOTAL PROTEIN 5.8 GM/DL (6.4-8.2)
[2018-07-19] MEDS ORDERED: LISI10TA2 PO (08:46)
[2018-07-19] MEDS ORDERED: SIMV40TA4 PO (08:46)
[2018-07-19] MEDS ORDERED: ASPI-999 PO (08:46)
[2018-07-21] MEDS ORDERED: TRAM50TA2 PO (11:22)
== END 2018-07-28 | disposition home or self-care (01) ==
LOC: ONC 08:50
PROVIDERS: ATTEND Internal Medicine Hematology & Oncology
DX: C83.10 Mantle cell lymphoma, unspecified site (principal); Z85.038 Personal history of other malignant neoplasm of large intestine; D64.9 Anemia, unspecified; D69.6 Thrombocytopenia, unspecified; I25.10 Atherosclerotic heart disease of native coronary artery without angina pectoris; Z95.1 Presence of aortocoronary bypass graft; Z79.899 Other long term (current) drug therapy
CPT/HCPCS: 36591; 80053; 82378; 83615; 85025; 96523

== ENCOUNTER 2018-07-19 05:39 | Outpatient (CLI) | payer MEDICARE, OTHER ==
[~2018-07-19] VITALS: Ht 177.8 cm; Wt 90.8 kg
[2018-07-19] MEDS ORDERED: ASPI-999 PO (08:46)
[2018-07-19] MEDS ORDERED: LISI10TA2 PO (08:46)
[2018-07-19] MEDS ORDERED: SIMV40TA4 PO (08:46)
== END 2018-07-19 08:56 | disposition home or self-care (01) ==
LOC: PREOP 05:39
PROVIDERS: ATTEND Surgery
DX: Z01.818 Encounter for other preprocedural examination (principal)

== ENCOUNTER 2018-07-21 07:46 | Day surgery (SDC) | payer MEDICARE, OTHER ==
[~2018-07-21] VITALS: Ht 177.8 cm; Wt 90.8 kg
[~2018-07-21 07:46] MED LIST changes: +ASPI-999 PO; +LISI10TA2 PO
--- OUTSIDE RECORDS SUMMARY | 2018-07-21 07:55 | XMS REPORT | Continuity of Care Document ---
Author Author [facility] Organization [facility] Address Unknown Phone Unavailable Allergies Active Description Code Type Severity Reaction Onset Reported/Identified Relationship to Patient Clinical Status Yes NO KNOWN DRUG ALLERGIES UNKNOWN NO KNOWN DRUG ALLERG Yes GLUE ON J J TAPE GLUE ON J J TAPE Unknown N/A 05/05/2014 Yes No Known Drug Allergies [id number] Drug Allergy Unknown N/A 07/19/2018 Medications There is no data. 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, UNSPECIFIED SITE 06/11/1131 ANTONI ALEXANDER Ot D64.9 ANEMIA, UNSPECIFIED 06/11/1131 ANTONI ALEXANDER Ot D69.6 THROMBOCYTOPENIA, UNSPECIFIED 06/11/1131 ANTONI ALEXANDER Ot I25.10 ATHSCL HEART DISEASE OF [place] CORONARY 06/11/1131 ANTONI ALEXANDER Ot Z45.2 ENCOUNTER FOR ADJUSTMENT AND MANAGEMENT 06/11/1131 ANTONI ALEXANDER Ot Z79.899 OTHER MARKETING TEAM LEAD (CURRENT) DRUG THERAPY 06/11/1131 ANTONI ALEXANDER Ot Z85.038 PERSONAL HISTORY OF MALIGNANT NEOPLASM O 06/11/1131 ANTONI ALEXANDER Ot 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 BYPASS GRAFT 06/11/1627 SOSA ALEGRE MD, Ot 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, UNSPECIFIED SITE 06/11/1627 SOSA ALEGRE MD Ot D64.9 ANEMIA, UNSPECIFIED 06/11/1627 SOSA ALEGRE MD, Ot D69.6 THROMBOCYTOPENIA, UNSPECIFIED 06/11/1627 SOSA ALEGRE MD Ot I25.10 ATHSCL HEART DISEASE OF [place] CORONARY 06/11/1627 SOSA ALEGRE MD Ot Z45.2 ENCOUNTER FOR ADJUSTMENT AND MANAGEMENT 06/11/1627 SOSA ALEGRE MD Ot Z79.899 OTHER GROUP HOME (CURRENT) DRUG THERAPY 06/11/1627 SOSA ALEGRE MD Ot Z85.038 PERSONAL HISTORY OF MALIGNANT NEOPLASM O 06/11/1627 SOSA ALEGRE MD Ot 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 BYPASS GRAFT 04/11/2010 Ot 200.40 04/11/2010 Ot 285.29 04/11/2010 Ot 287.4 04/11/2010 Ot V10.05 04/11/2010 Ot V58.66 04/11/2010 Ot V58.69 04/11/2010 Ot V58.81 04/11/2010 Ot V87.41 07/23/2010 Ot 200.40 07/23/2010 Ot V58.11 07/23/2010 Ot V58.81 11/04/2010 Ot 200.40 11/04/2010 Ot 285.9 11/04/2010 Ot 287.5 11/04/2010 Ot 786.07 11/04/2010 Ot 786.2 11/04/2010 Ot V10.05 11/04/2010 Ot V58.66 11/04/2010 Ot V58.69 11/04/2010 Ot V58.81 11/04/2010 Ot V87.41 12/05/2010 Ot 724.2 02/04/2011 Ot 200.40 02/04/2011 Ot V10.05 02/04/2011 Ot V58.81 03/21/2011 Ot 200.40 03/21/2011 Ot V10.05 03/21/2011 Ot V58.81 07/09/2011 Ot 200.40 07/09/2011 Ot V10.05 07/09/2011 Ot V58.11 07/09/2011 Ot V58.81 10/15/2011 Ot 200.40 10/15/2011 Ot 272.4 10/15/2011 Ot 401.9 10/15/2011 Ot 414.01 10/15/2011 Ot V10.05 10/15/2011 Ot V58.11 10/15/2011 Ot V58.69 10/15/2011 Ot V58.81 01/18/2012 Ot 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, UNSP SITE, EXTRANO 01/18/2012 Ot 272.4 HYPERLIPIDEMIA NEC/NOS 01/18/2012 Ot 401.9 HYPERTENSION NOS 01/18/2012 Ot 414.01 CORONARY ATHEROSCLEROSIS OF [place] CORON 01/18/2012 Ot V10.05 HX OF COLONIC MALIGNANCY 01/18/2012 Ot V58.11 ENCOUNTER FOR ANTINEOPLASTIC CHEMOTHERAP 01/18/2012 Ot V58.69 OTH MED,LT, CURRENT USE 01/18/2012 Ot V58.81 FIT/ADJ VASCULAR CATHETER 05/04/2012 Ot 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, UNSP SITE, EXTRANO 05/04/2012 Ot 272.4 HYPERLIPIDEMIA NEC/NOS 05/04/2012 Ot 401.9 HYPERTENSION NOS 05/04/2012 Ot 414.01 CORONARY ATHEROSCLEROSIS OF [place] CORON 05/04/2012 Ot V10.05 HX OF COLONIC MALIGNANCY 05/04/2012 Ot V58.11 ENCOUNTER FOR ANTINEOPLASTIC CHEMOTHERAP 05/04/2012 Ot V58.69 OTH MED,LT, CURRENT USE 05/04/2012 Ot V58.81 FIT/ADJ VASCULAR CATHETER 08/02/2012 Ot V10.05 HX OF COLONIC MALIGNANCY 08/02/2012 Ot V76.51 SCREEN MAL NEOP-COLON 08/18/2012 Ot 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, UNSP SITE, EXTRANO 08/18/2012 Ot 272.4 HYPERLIPIDEMIA NEC/NOS 08/18/2012 Ot 401.9 HYPERTENSION NOS 08/18/2012 Ot 414.01 CORONARY ATHEROSCLEROSIS OF [place] CORON 08/18/2012 Ot V10.05 HX OF COLONIC MALIGNANCY 08/18/2012 Ot V58.11 ENCOUNTER FOR ANTINEOPLASTIC CHEMOTHERAP 08/18/2012 Ot V58.69 OTH MED,LT, CURRENT USE 08/18/2012 Ot V58.81 FIT/ADJ VASCULAR CATHETER 11/16/2012 ROB ALEX FACC, BOR FACP CCDS Ot 202.80 OTH LYMPHOMAS EXTRANODAL SOLID ORGAN U 11/16/2012 ROB ALEX FACC, BRO FACP CCDS Ot 272.4 HYPERLIPIDEMIA NEC/NOS 11/16/2012 ROB ALEX FACC, BRO FACP CCDS Ot 401.9 HYPERTENSION NOS 11/16/2012 ROB ALEX FACC, BRO FACP CCDS Ot 412 OLD MYOCARDIAL INFARCT 11/16/2012 ROB ALEX FACC, BRO FACP CCDS Ot 414.01 CORONARY ATHEROSCLEROSIS OF [place] CORON 11/16/2012 ROB ALEX FACC, BRO FACP CCDS Ot 414.4 CORONARY ATHEROSCLEROSIS DUE TO [place] 11/16/2012 ROB ALEX FACC, BRO FACP CCDS Ot 433.10 CAROTID ARTERY OCCLUSION W O CEREBRAL IN 11/16/2012 ROB ALEX FACC, [facility] 786.09 RESPIRATORY ABNORM NEC 11/16/2012 ROB ALEX FACC, [facility] Ot V10.05 HX OF COLONIC MALIGNANCY 11/16/2012 ROB ALEX FACC, 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, UNSP SITE, EXTRANO 11/17/2012 ANTONI ALEXANDER N Ot 272.4 HYPERLIPIDEMIA NEC/NOS 11/17/2012 CATHERINE BOBAN N Ot 401.9 HYPERTENSION NOS 11/17/2012 NANI ALEXANDERAN N Ot 414.01 CORONARY ATHEROSCLEROSIS OF [place] CORON 11/17/2012 ANTONI ALEXANDER N Ot V10.05 HX OF COLONIC MALIGNANCY 11/17/2012 ANTONI ALEXANDER N Ot V58.11 ENCOUNTER FOR ANTINEOPLASTIC CHEMOTHERAP 11/17/2012 ANTONI ALEXANDER N Ot V58.69 OTH MED,LT,CURRENT USE 11/17/2012 ANTONI ALEXANDER N Ot V58.81 FIT/ADJ VASCULAR CATHETER 03/08/2013 CATHERINE BOBAN N Ot 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, UNSP SITE, EXTRANO 03/08/2013 ANTONI ALEXANDER N Ot 272.4 HYPERLIPIDEMIA NEC/NOS 03/08/2013 ANTONI ALEXANDER N Ot 401.9 HYPERTENSION NOS 03/08/2013 CATHERINE BOBAN N Ot 414.01 CORONARY ATHEROSCLEROSIS OF [place] CORON 03/08/2013 CATHERINEANTONI HERNANDEZ N Ot V10.05 HX OF COLONIC MALIGNANCY 03/08/2013 CATHERINEANTONI N Ot V58.11 ENCOUNTER FOR ANTINEOPLASTIC CHEMOTHERAP 03/08/2013 CATHERINEANTONI N Ot V58.69 OTH MED,LT,CURRENT USE 03/08/2013 CATHERINENANIAN N Ot V58.81 FIT/ADJ VASCULAR CATHETER 07/05/2013 ANTONI ALEXANDER N Ot 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, UNSP SITE, EXTRANO 07/05/2013 CATHERINE BOBAN N Ot 272.4 HYPERLIPIDEMIA NEC/NOS 07/05/2013 CATHERINE, BOBAN N Ot 401.9 HYPERTENSION NOS 07/05/2013 CATHERINE, BOBAN N Ot 414.01 CORONARY ATHEROSCLEROSIS OF [place] CORON 07/05/2013 CATHERINE BOBAN N Ot V10.05 HX OF COLONIC MALIGNANCY 07/05/2013 CATHERINE BOBAN N Ot V58.11 ENCOUNTER FOR ANTINEOPLASTIC CHEMOTHERAP 07/05/2013 CATHERINE BOBAN N Ot V58.69 OTH MED,LT,CURRENT USE 10/25/2013 CATHERINE BOBAN N Ot 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, UNSP SITE, EXTRANO 10/25/2013 CATHERINE BOBAN N Ot 272.4 HYPERLIPIDEMIA NEC/NOS 10/25/2013 CATHERINE, BOBAN N Ot 401.9 HYPERTENSION NOS 10/25/2013 CATHERINE, BOBAN N Ot 414.01 CORONARY ATHEROSCLEROSIS OF [place] CORON 10/25/2013 CATHERINE BOBAN N Ot V10.05 HX OF COLONIC MALIGNANCY 10/25/2013 CATHERINE BOBAN N Ot V58.11 ENCOUNTER FOR ANTINEOPLASTIC CHEMOTHERAP 10/25/2013 CATHERINENANIAN N Ot V58.69 OTH MED,LT,CURRENT USE 01/27/2014 CJ ALEX, CANDY Parson Ot 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 02/14/2014 CATHERINE BOBAN N Ot 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, UNSP SITE, EXTRANO 02/14/2014 CATHERINE BOBAN N Ot 272.4 HYPERLIPIDEMIA NEC/NOS 02/14/2014 CATHERINE BOBAN N Ot 401.9 HYPERTENSION NOS 02/14/2014 CATHERINE BOBAN N Ot 414.01 CORONARY ATHEROSCLEROSIS OF [place] CORON 02/14/2014 CATHERINE BOBAN N Ot V10.05 HX OF COLONIC MALIGNANCY 02/14/2014 CATHERINE BOBAN N Ot V58.11 ENCOUNTER FOR ANTINEOPLASTIC CHEMOTHERAP 02/14/2014 CATHERINE BOBAN N Ot V58.69 OTH MED,LT,CURRENT USE 02/14/2014 CATHERINE BOBAN N Ot V58.81 FIT/ADJ VASCULAR CATHETER 05/06/2014 CJ ALEX, CANDY Parson Ot 202.80 OTH LYMPHOMAS EXTRANODAL SOLID ORGAN U 05/06/2014 CJ ALEX, CANDY Parson Ot 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 05/06/2014 CJ ALEX, CANDY Parson Ot 272.4 HYPERLIPIDEMIA NEC/NOS 05/06/2014 CJ ALEX, CANDY Parson Ot 401.9 HYPERTENSION NOS 05/06/2014 CJ ALEX, CANDY Parson Ot 414.01 CORONARY ATHEROSCLEROSIS OF [place] CORON 05/06/2014 CJ ALEX, CANDY Parson Ot 575.0 ACUTE CHOLECYSTITIS 05/06/2014 CJ ALEX, CANDY Parson Ot V10.05 HX OF COLONIC MALIGNANCY 05/06/2014 CJ ALEX, CANDY Parson Ot V45.81 AORTOCORONARY BYPASS 05/25/2014 CATHERINE, BOBAN N Ot 200.40 05/25/2014 CATHERINE, BOBAN N Ot 272.4 05/25/2014 CATHERINE BOBAN N Ot 401.9 05/25/2014 CATHERINE BOBAN N Ot 414.01 05/25/2014 CATHERINE BOBAN N Ot V10.05 05/25/2014 CATHERINE BOBAN N Ot V58.11 05/25/2014 CATHERINE, BOBAN N Ot V58.69 05/31/2014 CJ ALEX, CANDY Parson Ot 173.31 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 05/31/2014 CJ ALEX, CANDY Parson Ot V58.69 OTH MED,LT,CURRENT USE 06/07/2014 CATHERINE BOBAN N Ot 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, UNSP SITE, EXTRANO 06/07/2014 CATHERINE BOBAN N Ot 272.4 HYPERLIPIDEMIA NEC/NOS 06/07/2014 CATHERINE BOBAN N Ot 401.9 HYPERTENSION NOS 06/07/2014 CATHERINE, BOBAN N Ot 414.01 CORONARY ATHEROSCLEROSIS OF [place] CORON 06/07/2014 CATHERINE BOBAN N Ot V10.05 HX OF COLONIC MALIGNANCY 06/07/2014 CATHERINE, BOBAN N Ot V58.11 ENCOUNTER FOR ANTINEOPLASTIC CHEMOTHERAP 06/07/2014 CATHERINE BOBAN N Ot V58.69 OTH MED,LT,CURRENT USE 06/07/2014 CATHERINE BOBAN N Ot V58.81 FIT/ADJ VASCULAR CATHETER 06/26/2014 CJ ALEX, CANDY Parson Ot V74.8 06/29/2014 CATHERINE, BOBAN N Ot 200.40 06/29/2014 CATHERINE, BOBAN N Ot 272.4 06/29/2014 CATHERINE, BOBAN N Ot 401.9 06/29/2014 CATHERINE, BOBAN N Ot 414.01 06/29/2014 CATHERINE, BOBAN N Ot V10.05 06/29/2014 CATHERINE, BOBAN N Ot V58.11 06/29/2014 CATHERINE, BOBAN N Ot V58.69 06/29/2014 CATHERINE, BOBAN N Ot 200.40 06/29/2014 CATHERINE, BOBAN N Ot 272.4 06/29/2014 CATHERINE, BOBAN N Ot 401.9 06/29/2014 CATHERINE, BOBAN N Ot 414.01 06/29/2014 CATHERINE, BOBAN N Ot V10.05 06/29/2014 CATHERINE, BOBAN N Ot V58.11 06/29/2014 CATHERINE, BOBAN N Ot V58.69 06/30/2014 CATHERINE, BOBAN N Ot 200.40 06/30/2014 CATHERINE, BOBAN N Ot 272.4 06/30/2014 CATHERINE, BOBAN N Ot 401.9 06/30/2014 CATHERINE, BOBAN N Ot 414.01 06/30/2014 CATHERINE, BOBAN N Ot V10.05 06/30/2014 CATHERINE, BOBAN N Ot V58.11 06/30/2014 CATHERINE, BOBAN N Ot V58.69 07/03/2014 CATHERINE, BOBAN N Ot 200.40 07/03/2014 CATHERINE, BOBAN N Ot 272.4 07/03/2014 CATHERINE, BOBAN N Ot 401.9 07/03/2014 CATHERINE, BOBAN N Ot 414.01 07/03/2014 CATHERINE, BOBAN N Ot V10.05 07/03/2014 CATHERINE, BOBAN N Ot V58.11 07/03/2014 CATHERINE, BOBAN N Ot V58.69 07/11/2014 JERMAINE ALEX, ELBERT T Ot 807.01 FRACTURE ONE RIB-CLOSED 07/11/2014 JERMAINE ALEX, ELBERT T Ot 842.00 SPRAIN OF WRIST NOS 07/11/2014 JERMAINE ALEX, ELBERT Diaz Ot 959.11 OTH INJURY OF CHEST WALL 07/11/2014 JERMAINE ALEX, ELBERT Diaz Ot E000.8 OTHER EXTERNAL CAUSE STATUS 07/11/2014 JERMAINE ALEX, ELBERT Diaz Ot E849.0 ACCIDENT IN HOME 07/11/2014 JERMAINE ALEX, ELBERT Diaz Ot E885.9 FALL FROM SLIPPING, TRIPPING, OR STUMBLI 07/18/2014 DAVID PIZANO DINKEY DISPATCHER Ot 200.40 07/18/2014 DAVID PIZANO S DINKEY DISPATCHER Ot 272.4 07/18/2014 DAVID PIZANO S DINKEY DISPATCHER Ot 401.9 07/18/2014 PIZANO, TRACEYAH S DINKEY DISPATCHER Ot 414.01 07/18/2014 TRACEY PIZANOGENNY S DINKEY DISPATCHER Ot V10.05 07/18/2014 TRACEY PIZANOGENNY S DINKEY DISPATCHER Ot V58.69 07/20/2014 DAVID PIZANO S DINKEY DISPATCHER Ot 200.40 07/20/2014 DAVID PIZANO S DINKEY DISPATCHER Ot 285.9 07/20/2014 TRACEY PIZANOAH S DINKEY DISPATCHER Ot 287.5 07/20/2014 TRACEY PIZANOGENNY S DINKEY DISPATCHER Ot 414.00 07/20/2014 TRACEY PIZANOGENNY S DINKEY DISPATCHER Ot V10.05 07/20/2014 DAVID PIZANO S DINKEY DISPATCHER Ot V45.81 07/20/2014 DAVID PIZANO S DINKEY DISPATCHER Ot V58.69 07/20/2014 DAVID PIZANO S DINKEY DISPATCHER Ot V87.41 08/07/2014 CJ ALEX, CANDY Parson Ot 562.10 DIVERTICULOSIS COLON (W/O MENT OF HEMORR 08/07/2014 CJ ALEX, CANDY Parson Ot V10.05 HX OF COLONIC MALIGNANCY 08/07/2014 CJ ALEX, CANDY Parson Ot V67.09 SURGERY FOLLOW-UP, OTHER SURGERY 08/07/2014 DAVID PIZANO S DINKEY DISPATCHER Ot 200.40 08/07/2014 DAVID PIZANO S DINKEY DISPATCHER Ot 285.9 08/07/2014 DAVID PIZANO S DINKEY DISPATCHER Ot 287.5 08/07/2014 DAVID PIZANO S DINKEY DISPATCHER Ot 414.00 08/07/2014 DAVID PIZANO S DINKEY DISPATCHER Ot V10.05 08/07/2014 DAIVD PIZANO S DINKEY DISPATCHER Ot V45.81 08/07/2014 DAVID PIZANO S DINKEY DISPATCHER Ot V58.69 08/07/2014 TRACEY PIZANOGENNY Lanny DINKEY DISPATCHER Ot V87.41 09/27/2014 CATHERINE, BOBAN N Ot 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, UNSP SITE, EXTRANO 09/27/2014 CATHERINE, BOBAN N Ot 272.4 HYPERLIPIDEMIA NEC/NOS 09/27/2014 CATHERINE, BOBAN N Ot 401.9 HYPERTENSION NOS 09/27/2014 CATHERINE, BOBAN N Ot 414.01 CORONARY ATHEROSCLEROSIS OF [place] CORON 09/27/2014 CATHERINE, BOBAN N Ot V10.05 HX OF COLONIC MALIGNANCY 09/27/2014 CATHERINE BOBAN N Ot V58.11 ENCOUNTER FOR ANTINEOPLASTIC CHEMOTHERAP 09/27/2014 CATHERINE BOBAN N Ot V58.69 OTH MED,LT,CURRENT USE 10/05/2014 CATHERINE, BOBAN N Ot 200.40 10/05/2014 CATHERINE, BOBAN N Ot 272.4 10/05/2014 CATHERINE, BOBAN N Ot 401.9 10/05/2014 CATHERINE, BOBAN N Ot 414.01 10/05/2014 CATHERINE, BOBAN N Ot V10.05 10/05/2014 CATHERINE, BOBAN N Ot V58.11 10/05/2014 CATHERINE, BOBAN N Ot V58.69 10/05/2014 CATHERINE, BOBAN N Ot 200.40 10/05/2014 CATHERINE, BOBAN N Ot 272.4 10/05/2014 CATHERINE, BOBAN N Ot 401.9 10/05/2014 CATHERINE, BOBAN N Ot 414.01 10/05/2014 CATHERINE, BOBAN N Ot V10.05 10/05/2014 CATHERINE, BOBAN N Ot V58.11 10/05/2014 CATHERINE, BOBAN N Ot V58.69 10/05/2014 CATHERINE, BOBAN N Ot 200.40 10/05/2014 CATHERINE, BOBAN N Ot 272.4 10/05/2014 CATHERINE, BOBAN N Ot 401.9 10/05/2014 CATHERINE, BOBAN N Ot 414.01 10/05/2014 CATHERINE, BOBAN N Ot V10.05 10/05/2014 CATHERINE, BOBAN N Ot V58.11 10/05/2014 CATHERINE, BOBAN N Ot V58.69 10/06/2014 CATHERINE, BOBAN N Ot 200.40 10/06/2014 CATHERINEANTONI HERNANDEZ N Ot 272.4 10/06/2014 CATHERINENANI HERNANDEZMODESTO N Ot 401.9 10/06/2014 CATHERINENANI HERNANDEZMODESTO N Ot 414.01 10/06/2014 ANTONI ALEXANDER N Ot V10.05 10/06/2014 NANI ALEXANDERMODESTO N Ot V58.11 10/06/2014 CATHERINEANTONI HERNANDEZ N Ot V58.69 11/01/2014 Ot V72.84 11/01/2014 Ot V72.84 11/08/2014 ANTONI ALEXANDER N Ot 200.40 11/08/2014 CATHERINENANI HERNANDEZMODESTO N Ot 272.4 11/08/2014 CATHERINE, ANTONI N Ot 401.9 11/08/2014 CATHERINE, ANTONI N Ot 414.01 11/08/2014 CATHERINE, ANTONI N Ot V10.05 11/08/2014 CATHERINE ANTONI N Ot V58.69 11/08/2014 CATHERINE ANTONI N Ot V58.81 01/02/2015 DAVID PIZANO DINKEY DISPATCHER Ot 200.40 01/02/2015 DAVID PIZANO DINKEY DISPATCHER Ot 414.01 01/02/2015 DAVID PIZANO DINKEY DISPATCHER Ot V10.05 01/02/2015 DAVID PIZANO DINKEY DISPATCHER Ot V45.81 01/02/2015 DAVID PIZANO DINKEY DISPATCHER Ot V58.69 01/02/2015 DAVID PIZANO DINKEY DISPATCHER Ot V87.41 01/03/2015 CATHERINE ANTONI N Ot 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, [facility], EXTRANO 01/03/2015 ANTONI ALEXANDER N Ot 272.4 HYPERLIPIDEMIA NEC/NOS 01/03/2015 CATHERINE ANTONI N Ot 401.9 HYPERTENSION NOS 01/03/2015 CATHERINE ANTONI N Ot 414.01 CORONARY ATHEROSCLEROSIS OF [place] CORON 01/03/2015 ANTONI ALEXANDER N Ot V10.05 HX OF COLONIC MALIGNANCY 01/03/2015 CATHERINEANTONI N Ot V58.11 ENCOUNTER FOR ANTINEOPLASTIC CHEMOTHERAP 01/03/2015 ANTONI ALEXANDER N Ot V58.69 OTH MED,LT,CURRENT USE 01/03/2015 CATHERINEANTONI HERNANDEZ N Ot V58.81 FIT/ADJ VASCULAR CATHETER 01/05/2015 PIZANODAVID Ca DINKEY DISPATCHER Ot 200.40 01/05/2015 PIZANODAVID DINKEY DISPATCHER Ot 414.01 01/05/2015 PIZANODAVID Ca S DINKEY DISPATCHER Ot V10.05 01/05/2015 PIZANODAVID Ca S DINKEY DISPATCHER Ot V45.81 01/05/2015 PIZANODAVID S DINKEY DISPATCHER Ot V58.69 01/05/2015 PIZANODAVID Ca S DINKEY DISPATCHER Ot V87.41 02/08/2015 CATHERINE, BOBAN N Ot 200.40 02/08/2015 CATHERINE, BOBAN N Ot 272.4 02/08/2015 CATHERINE, BOBAN N Ot 401.9 02/08/2015 CATHERINE, BOBAN N Ot 414.01 02/08/2015 CATHERINE, BOBAN N Ot V10.05 02/08/2015 CATHERINE, BOBAN N Ot V58.69 02/08/2015 CATHERINE, BOBAN N Ot V58.81 02/08/2015 CATHERINE, BOBAN N Ot 200.40 02/08/2015 CATHERINE, BOBAN N Ot 272.4 02/08/2015 CATHERINE, BOBAN N Ot 401.9 02/08/2015 CATHERINE, BOBAN N Ot 414.01 02/08/2015 CATHERINE, BOBAN N Ot V10.05 02/08/2015 CATHERINE, BOBAN N Ot V58.69 02/08/2015 CATHERINE, BOBAN N Ot V58.81 02/15/2015 CATHERINE, BOBAN N Ot 200.40 02/15/2015 CATHERINE, BOBAN N Ot 272.4 02/15/2015 CATHERINE, BOBAN N Ot 401.9 02/15/2015 CATHERINE, BOBAN N Ot 414.01 02/15/2015 CATHERINE, BOBAN N Ot V10.05 02/15/2015 CATHERINE, BOBAN N Ot V58.69 02/15/2015 CATHERINE, BOBAN N Ot V58.81 02/16/2015 CATHERINE, BOBAN N Ot 200.40 02/16/2015 CATHERINE, BOBAN N Ot 272.4 02/16/2015 CATHERINE, BOBAN N Ot 401.9 02/16/2015 CATHERINE, BOBAN N Ot 414.01 02/16/2015 CATHERINE, BOBAN N Ot V10.05 02/16/2015 CATHERINE, BOBAN N Ot V58.69 02/16/2015 CATHERINE, BOBAN N Ot V58.81 02/28/2015 CATHERINE, BOBAN N Ot 200.40 02/28/2015 CATHERINE, BOBAN N Ot 272.4 02/28/2015 CATHERINE, BOBAN N Ot 401.9 02/28/2015 CATHERINE, BOBAN N Ot 414.01 02/28/2015 CATHERINE, BOBAN N Ot V10.05 02/28/2015 CATHERINE, BOBAN N Ot V58.11 02/28/2015 CATHERINE, BOBAN N Ot V58.69 04/04/2015 CATHERINE, BOBAN N Ot 200.40 04/04/2015 CATHERINE, BOBAN N Ot 272.4 04/04/2015 CATHERINE, BOBAN N Ot 401.9 04/04/2015 CATHERINE, BOBAN N Ot 414.01 04/04/2015 CATHERINE, BOBAN N Ot V10.05 04/04/2015 CATHERINE, BOBAN N Ot V58.11 04/04/2015 CATHERINE, BOBAN N Ot V58.69 04/11/2015 CATHERINE, BOBAN N Ot 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, UNSP SITE, EXTRANO 04/11/2015 CATHERINE, BOBAN N Ot 272.4 HYPERLIPIDEMIA NEC/NOS 04/11/2015 CATHERINE, BOBAN N Ot 401.9 HYPERTENSION NOS 04/11/2015 CATHERINE, BOBAN N Ot 414.01 CORONARY ATHEROSCLEROSIS OF [place] CORON 04/11/2015 CATHERINE BOBAN N Ot V10.05 HX OF COLONIC MALIGNANCY 04/11/2015 CATHERINE BOBAN N Ot V58.11 ENCOUNTER FOR ANTINEOPLASTIC CHEMOTHERAP 04/11/2015 CATHERINE BOBAN N Ot V58.69 OTH MED,LT,CURRENT USE 04/11/2015 CATHERINE, BOBAN N Ot V58.81 FIT/ADJ VASCULAR CATHETER 05/03/2015 CATHERINE, BOBAN N Ot 200.40 05/03/2015 CATHERINE, BOBAN N Ot 272.4 05/03/2015 CATHERINE, BOBAN N Ot 401.9 05/03/2015 CATHERINE, BOBAN N Ot 414.01 05/03/2015 CATHERINE, BOBAN N Ot V10.05 05/03/2015 CATHERINE, NANIAN N Ot V58.11 05/03/2015 CATHERINE, BOBAN N Ot V58.69 05/10/2015 CATHERINE, BOBAN N Ot 200.40 05/10/2015 CATHERINE, BOBAN N Ot 272.4 05/10/2015 CATHERINE, BOBAN N Ot 401.9 05/10/2015 CATHERINE, BOBAN N Ot 414.01 05/10/2015 CATHERINE, BOBAN N Ot V10.05 05/10/2015 CATHERINE, BOBAN N Ot V58.11 05/10/2015 CATHERINE, BOBAN N Ot V58.69 06/15/2015 CATHERINE, BOBAN N Ot 200.40 06/15/2015 CATHERINE, BOBAN N Ot 272.4 06/15/2015 CATHERINE, BOBAN N Ot 401.9 06/15/2015 CATHERINE, BOBAN N Ot 414.01 06/15/2015 CATHERINE, BOBAN N Ot V10.05 06/15/2015 CATHERINE, BOBAN N Ot V58.11 06/15/2015 CATHERINE, BOBAN N Ot V58.69 07/04/2015 CATHERINE, BOBAN N Ot C83.10 07/04/2015 CATHERINE, BOBAN N Ot D64.9 07/04/2015 CATHERINE, BOBAN N Ot D69.6 07/04/2015 CATHERINE, BOBAN N Ot I25.10 07/04/2015 CATHERINE, NANIAN N Ot Z51.11 07/04/2015 CATHERINE, BOBAN N Ot Z79.899 07/04/2015 CATHERINE, BOBAN N Ot Z85.038 07/04/2015 CATHERINE, BOBAN N Ot Z95.1 07/12/2015 ROB ALEX FACC, ALI FACP CCDS Ot C83.13 07/12/2015 ROB ALEX FACC, ALI FACP CCDS Ot E78.4 07/12/2015 ROB ALEX FACC, ALI FACP CCDS Ot I25.10 07/12/2015 ROB ALEX FACC, ALI FACP CCDS Ot I65.23 07/12/2015 ROB ALEX FACC, ALI FACP CCDS Ot Z85.038 07/18/2015 CATHERINE, BOBAN N Ot C83.10 07/18/2015 ANTONI ALEXANDER Ot D64.9 07/18/2015 ANTONI ALEXANDER Ot D69.6 07/18/2015 ANTONI ALEXANDER Ot I25.10 07/18/2015 ANTONI ALEXANDER Ot Z51.11 07/18/2015 ANTONI ALEXANDER Ot Z79.899 07/18/2015 ANTONI ALEXANDER Ot Z85.038 07/18/2015 ANTONI ALEXANDER Ot Z95.1 07/23/2015 JERMAINE ALEX, ELBERT Diaz Ot F17.211 NICOTINE DEPENDENCE, CIGARETTES, IN DONI 07/23/2015 JERMAINE ALEX, ELBERT Diaz Ot 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 07/23/2015 JERMAINE ALEX, ELBERT Diaz Ot Z85.038 PERSONAL HISTORY OF MALIGNANT NEOPLASM O 07/30/2015 Ot 202.80 07/30/2015 Ot 412 07/30/2015 Ot 414.00 07/30/2015 Ot 272.4 07/30/2015 Ot 414.01 07/30/2015 Ot V58.69 07/30/2015 Ot 786.07 07/30/2015 Ot 786.2 07/30/2015 Ot 530.81 07/30/2015 Ot 553.3 07/30/2015 Ot 792.1 07/30/2015 Ot V10.06 07/30/2015 Ot 272.4 07/30/2015 Ot 414.01 07/30/2015 Ot V58.69 07/30/2015 Ot 272.4 07/30/2015 Ot 401.9 07/30/2015 Ot 414.01 07/30/2015 Ot V58.69 07/30/2015 Ot 244.9 07/30/2015 Ot 272.4 07/30/2015 Ot 401.9 07/30/2015 Ot 272.4 07/30/2015 Ot 401.9 07/30/2015 Ot 414.01 07/30/2015 Ot V58.69 07/30/2015 Ot 272.4 07/30/2015 Ot V58.69 07/30/2015 Ot 200.40 07/30/2015 Ot 202.80 07/30/2015 Ot 793.99 07/30/2015 Ot 202.80 07/30/2015 Ot 733.90 07/30/2015 Ot V72.84 07/30/2015 Ot 272.4 07/30/2015 Ot V58.69 07/30/2015 Ot 412 07/30/2015 DAVID PIZANO DINKEY DISPATCHER Ot 200.40 07/30/2015 DAVID PIZANO S DINKEY DISPATCHER Ot 272.4 07/30/2015 DAVID PIZANO S DINKEY DISPATCHER Ot 401.9 07/30/2015 DAVID PIZANO S DINKEY DISPATCHER Ot 414.01 07/30/2015 PIZANODAVID Ca S DINKEY DISPATCHER Ot V10.05 07/30/2015 DAVID PIZANO S DINKEY DISPATCHER Ot V58.69 07/30/2015 ROB ALEX FAC, ALI FACP CCDS Ot 272.4 07/30/2015 ROB ALEX FAC, ALI FACP CCDS Ot 396.8 07/30/[address] [facility], ALI FACP CCDS Ot 397.0 07/30/[address] [facility], ALI FACP CCDS Ot 414.01 07/30/[address] [facility], ALI FACP CCDS Ot V45.81 07/30/[address] [facility], ALI FACP CCDS Ot V58.69 07/30/2015 PIZANODAVID Ca DINKEY DISPATCHER Ot 200.40 07/30/2015 PIZANODAVID Ca S DINKEY DISPATCHER Ot 272.4 07/30/2015 PIZANODAVID Ca S DINKEY DISPATCHER Ot 401.9 07/30/2015 PIZANODAVID Ca S DINKEY DISPATCHER Ot 414.01 07/30/2015 PIZANODAVID S DINKEY DISPATCHER Ot V10.05 07/30/2015 PIZANODAVID Ca S DINKEY DISPATCHER Ot V58.69 07/30/2015 PIZANODAVID Ca S DINKEY DISPATCHER Ot V58.81 07/30/2015 PIZANODAVID Ca S DINKEY DISPATCHER Ot 200.40 07/30/2015 PIZANODAVID S DINKEY DISPATCHER Ot 272.4 07/30/2015 PIZANODAVID S DINKEY DISPATCHER Ot 401.9 07/30/2015 PIZANODAVID Ca S DINKEY DISPATCHER Ot 414.01 07/30/2015 PIZANODAVID S DINKEY DISPATCHER Ot V10.05 07/30/2015 HARINDER DAVID S DINKEY DISPATCHER Ot V58.69 07/30/[address] [facility], ALI FACP CCDS Ot 272.4 07/30/[address] [facility], ALI FACP CCDS Ot 414.00 07/30/[address] [facility], ALI FACP CCDS Ot V58.69 07/30/2015 PIZANODAVID Ca S DINKEY DISPATCHER Ot 200.40 07/30/2015 PIZANODAVID S DINKEY DISPATCHER Ot 285.9 07/30/2015 PIZANO DAVID S DINKEY DISPATCHER Ot 287.5 07/30/2015 PIZANO, HILAH S DINKEY DISPATCHER Ot 414.00 07/30/2015 PIZANO, HILAH S DINKEY DISPATCHER Ot V10.05 07/30/2015 PIZANO, HILAH S DINKEY DISPATCHER Ot V45.81 07/30/2015 PIZANO, HILAH S DINKEY DISPATCHER Ot V58.69 07/30/2015 CJ ALEX, CANDY Parson Ot V72.84 07/30/2015 HARINDER DAVID S DINKEY DISPATCHER Ot 200.40 07/30/2015 PIZANO DAVID S DINKEY DISPATCHER Ot 414.00 07/30/2015 PIZANO DAVID S DINKEY DISPATCHER Ot 414.01 07/30/2015 PIZANO DAVID S DINKEY DISPATCHER Ot V10.05 07/30/2015 PIZANO DAVID S DINKEY DISPATCHER Ot V45.81 07/30/2015 PIZANO, DAVID S DINKEY DISPATCHER Ot V58.69 07/30/2015 PIZANO DAVID S DINKEY DISPATCHER Ot V87.41 07/30/2015 CJ ALEX, CANDY M Ot 173.31 07/30/2015 CJ ALEX, CANDY M Ot V72.84 07/30/2015 CJ ALEX, CANDY M Ot V74.8 07/30/2015 Ot V72.84 07/30/2015 PIZANO DAVID S DINKEY DISPATCHER Ot 200.40 07/30/2015 PIZANO, HILAH S DINKEY DISPATCHER Ot 285.9 07/30/2015 PIZANO, HILAH S DINKEY DISPATCHER Ot 287.5 07/30/2015 PIZANO, HILAH S DINKEY DISPATCHER Ot 414.00 07/30/2015 PIZANO, HILAH S DINKEY DISPATCHER Ot V10.05 07/30/2015 PIZANO, HILAH S DINKEY DISPATCHER Ot V45.81 07/30/2015 PIZANO HILAH S DINKEY DISPATCHER Ot V58.69 07/30/2015 PIZANO, HILAH S DINKEY DISPATCHER Ot V87.41 07/30/2015 DAVID PIZANO DINKEY DISPATCHER Ot 200.40 07/30/2015 DAVID PIZANO DINKEY DISPATCHER Ot 414.01 07/30/2015 DAVID PIZANO DINKEY DISPATCHER Ot V10.05 07/30/2015 DAVID PIZANO DINKEY DISPATCHER Ot V45.81 07/30/2015 DAVID PIZANO DINKEY DISPATCHER Ot V58.69 07/30/2015 DAVID PIZANO DINKEY DISPATCHER Ot V87.41 07/30/2015 CATHERINEANTONI Ot C83.10 07/30/2015 ANTONI ALEXANDER Ot D64.9 07/30/2015 ANTONI ALEXANDER Ot D69.6 07/30/2015 ANTONI ALEXANDER Ot I25.10 07/30/2015 ANTONI ALEXANDER Ot Z51.11 07/30/2015 ANTONI ALEXANDER Ot Z79.899 07/30/2015 ANTONI ALEXANDER Ot Z85.038 07/30/2015 ANTONI ALEXANDER Ot Z95.1 07/30/2015 ROB ALEX FACC, ALI FACP CCDS Ot C83.13 07/30/2015 ROB ALEX FACC, ALI FACP CCDS Ot E78.4 07/30/2015 ROB ALEX FACC, ALI FACP CCDS Ot I25.10 07/30/2015 ROB ALEX FACC, ALI FACP CCDS Ot I65.23 07/30/2015 ROB ALEX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 CORONARY 04/03/2017 CATHERINENANIAN N Ot Z45.2 ENCOUNTER FOR ADJUSTMENT AND MANAGEMENT 04/03/2017 CATHERINENANIAN N Ot Z79.899 OTHER GROUP HOME (CURRENT) DRUG THERAPY 04/03/2017 CATHERINENANIAN N Ot Z85.038 PERSONAL HISTORY OF MALIGNANT NEOPLASM O 04/03/2017 CATHERINEANTONI HERNANDEZ N Ot 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 BYPASS GRAFT 04/09/2017 CATHERINEANTONI HERNANDEZ N Ot 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, UNSPECIFIED SITE 04/09/2017 CATHERINENANIAN N Ot D64.9 ANEMIA, UNSPECIFIED 04/09/2017 CATHERINE, NANIAN N Ot D69.6 THROMBOCYTOPENIA, UNSPECIFIED 04/09/2017 CATHERINE BOBAN N Ot I25.10 ATHSCL HEART DISEASE OF [place] CORONARY 04/09/2017 CATHERINENNAIAN N Ot Z45.2 ENCOUNTER FOR ADJUSTMENT AND MANAGEMENT 04/09/2017 CATHERINE BOBAN N Ot Z79.899 OTHER GROUP HOME (CURRENT) DRUG THERAPY 04/09/2017 CATHERINE BOBAN N Ot Z85.038 PERSONAL HISTORY OF MALIGNANT NEOPLASM O 04/09/2017 CATHERINEANTONI N Ot 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 BYPASS GRAFT 04/11/2017 CATHERINEANTONI HERNANDEZ N Ot 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, UNSPECIFIED SITE 04/11/2017 CATHERINENANIAN N Ot D64.9 ANEMIA, UNSPECIFIED 04/11/2017 CATHERINE, BOBAN N Ot D69.6 THROMBOCYTOPENIA, UNSPECIFIED 04/11/2017 CATHERINE, BOBAN N Ot I25.10 ATHSCL HEART DISEASE OF [place] CORONARY 04/11/2017 CATHERINEANTONI N Ot Z45.2 ENCOUNTER FOR ADJUSTMENT AND MANAGEMENT 04/11/2017 CATHERINEANTONI N Ot Z79.899 OTHER MARKETING TEAM LEAD (CURRENT) DRUG THERAPY 04/11/2017 CATHERINEANTONI HERNANDEZ N Ot Z85.038 PERSONAL HISTORY OF MALIGNANT NEOPLASM O 04/11/2017 CATHERINE BOBAN N Ot 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 BYPASS GRAFT 04/17/2017 CATHERINE BOBAN N Ot 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, UNSPECIFIED SITE 04/17/2017 CATHERINE BOBAN N Ot D64.9 ANEMIA, UNSPECIFIED 04/17/2017 CATHERINE, BOBAN N Ot D69.6 THROMBOCYTOPENIA, UNSPECIFIED 04/17/2017 CATHERINE, BOBAN N Ot I25.10 ATHSCL HEART DISEASE OF [place] CORONARY 04/17/2017 CATHERINENANIAN N Ot Z45.2 ENCOUNTER FOR ADJUSTMENT AND MANAGEMENT 04/17/2017 ANTONI ALEXANDER Ot Z79.899 OTHER MARKETING TEAM LEAD (CURRENT) DRUG THERAPY 04/17/2017 ANTONI ALEXANDER Ot Z85.038 PERSONAL HISTORY OF MALIGNANT NEOPLASM O 04/17/2017 ANTONI ALEXANDER Ot 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 BYPASS GRAFT 04/27/2017 ANTONI ALEXANDER Ot 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, UNSPECIFIED SITE 04/27/2017 ANTONI ALEXANDER Ot D64.9 ANEMIA, UNSPECIFIED 04/27/2017 ANTONI ALEXANDER Ot D69.6 THROMBOCYTOPENIA, UNSPECIFIED 04/27/2017 ANTONI ALEXANDER Ot I25.10 ATHSCL HEART DISEASE OF [place] CORONARY 04/27/2017 ANTONI ALEXANDER Ot Z45.2 ENCOUNTER FOR ADJUSTMENT AND MANAGEMENT 04/27/2017 ANTONI ALEXANDER Ot Z79.899 OTHER GROUP HOME (CURRENT) DRUG THERAPY 04/27/2017 ANTONI ALEXANDER Ot Z85.038 PERSONAL HISTORY OF MALIGNANT NEOPLASM O 04/27/2017 ANTONI ALEXANDER Ot 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 BYPASS GRAFT 04/28/2017 Ot 272.4 HYPERLIPIDEMIA NEC/NOS 04/28/2017 Ot V58.69 OTH MED,LT, CURRENT USE 04/28/2017 Ot 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, UNSP SITE, EXTRANO 04/28/2017 Ot 202.80 OTH LYMPHOMAS EXTRANODAL SOLID ORGAN U 04/28/2017 Ot 793.99 OTH NOSP ( ABN) FINDINGS RADIOLOGICAL O 04/28/2017 Ot 202.80 OTH LYMPHOMAS EXTRANODAL SOLID ORGAN U 04/28/2017 Ot 733.90 BONE CARTILAGE DIS NOS 04/28/2017 Ot V72.84 EXAM PRE- OPERATIVE NOS 04/28/2017 Ot 272.4 HYPERLIPIDEMIA NEC/NOS 04/28/2017 Ot V58.69 OTH MED,LT, CURRENT USE 04/28/2017 Ot 412 OLD MYOCARDIAL INFARCT 04/28/2017 DAVID PIZANO DINKEY DISPATCHER Ot 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, UNSP SITE, EXTRANO 04/28/2017 DAVID PIZANO DINKEY DISPATCHER Ot 272.4 HYPERLIPIDEMIA NEC/NOS 04/28/2017 DAVID PIZANO DINKEY DISPATCHER Ot 401.9 HYPERTENSION NOS 04/28/2017 DAVID PIZANO DINKEY DISPATCHER Ot 414.01 CORONARY ATHEROSCLEROSIS OF [place] CORON 04/28/2017 DAVID PIZANO DINKEY DISPATCHER Ot V10.05 HX OF COLONIC MALIGNANCY 04/28/2017 DAVID PIZANO DINKEY DISPATCHER Ot V58.69 OTH MED,LT,CURRENT USE 04/28/2017 ROB ALEX FACC, BRO FACP CCDS Ot 272.4 HYPERLIPIDEMIA NEC/NOS 04/28/2017 ROB ALEX FACC, ALI FACP CCDS Ot 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 04/28/2017 ROB ALEX FACC, ALI FACP CCDS Ot 397.0 TRICUSPID VALVE DISEASE 04/28/2017 ROB ALEX FACC, ALI FACP CCDS Ot 414.01 CORONARY ATHEROSCLEROSIS OF [place] CORON 04/28/2017 ROB ALEX FACC, BRO FACP CCDS Ot V45.81 AORTOCORONARY BYPASS 04/28/2017 ROB ALEX FACC, BRO FACP CCDS Ot V58.69 OTH MED,LT,CURRENT USE 04/28/2017 DAVID PIZANO DINKEY DISPATCHER Ot 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, UNSP SITE, EXTRANO 04/28/2017 DAVID PIZANO DINKEY DISPATCHER Ot 272.4 HYPERLIPIDEMIA NEC/NOS 04/28/2017 DAVID PIZANO DINKEY DISPATCHER Ot 401.9 HYPERTENSION NOS 04/28/2017 DAVID PIZANO DINKEY DISPATCHER Ot 414.01 CORONARY ATHEROSCLEROSIS OF [place] CORON 04/28/2017 DAVID PIZANO DINKEY DISPATCHER Ot V10.05 HX OF COLONIC MALIGNANCY 04/28/2017 DAVID PIZANOP Ot V58.69 OTH MED,LT,CURRENT USE 04/28/2017 DAVID PIZANO DINKEY DISPATCHER Ot V58.81 FIT/ADJ VASCULAR CATHETER 04/28/2017 DAVID PIZANO DINKEY DISPATCHER Ot 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, UNSP SITE, EXTRANO 04/28/2017 DAVID PIZANO DINKEY DISPATCHER Ot 272.4 HYPERLIPIDEMIA NEC/NOS 04/28/2017 DAVID PIZANO DINKEY DISPATCHER Ot 401.9 HYPERTENSION NOS 04/28/2017 DAVID PIZANO DINKEY DISPATCHER Ot 414.01 CORONARY ATHEROSCLEROSIS OF [place] CORON 04/28/2017 DAVID PIZANO DINKEY DISPATCHER Ot V10.05 HX OF COLONIC MALIGNANCY 04/28/2017 PIZANO, HILAH S DINKEY DISPATCHER Ot V58.69 OTH MED,LT,CURRENT USE 04/28/2017 ROB ALEX FAC, BRO FACP CCDS Ot 272.4 HYPERLIPIDEMIA NEC/NOS 04/28/2017 ROB ALEX FAC, ALI FACP CCDS Ot 414.00 CORON ATHEROSCLER NOS TYPE VESSEL, NATIV 04/28/2017 ROB VALLE, BRO FACP CCDS Ot V58.69 OTH MED,LT,CURRENT USE 04/28/2017 DAVID PIZANO S DINKEY DISPATCHER Ot 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, UNSP SITE, EXTRANO 04/28/2017 TRACEY PIZANOAH S DINKEY DISPATCHER Ot 285.9 ANEMIA NOS 04/28/2017 PIZANO, HILAH S DINKEY DISPATCHER Ot 287.5 THROMBOCYTOPENIA NOS 04/28/2017 TRACEY PIZANOAH S DINKEY DISPATCHER Ot 414.00 CORON ATHEROSCLER NOS TYPE VESSEL, NATIV 04/28/2017 DAVID PIZANO S DINKEY DISPATCHER Ot V10.05 HX OF COLONIC MALIGNANCY 04/28/2017 DAVID PIZANO S DINKEY DISPATCHER Ot V45.81 AORTOCORONARY BYPASS 04/28/2017 DAVID PIZANO S DINKEY DISPATCHER Ot V58.69 OTH MED,LT,CURRENT USE 04/28/2017 CANDY CORONA MD Ot V72.84 EXAM PRE-OPERATIVE NOS 04/28/2017 DAVID PIZANO S DINKEY DISPATCHER Ot 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, UNSP SITE, EXTRANO 04/28/2017 DAVID PIZANO S DINKEY DISPATCHER Ot 414.00 CORON ATHEROSCLER NOS TYPE VESSEL, NATIV 04/28/2017 DAVID PIZANO S DINKEY DISPATCHER Ot 414.01 CORONARY ATHEROSCLEROSIS OF [place] CORON 04/28/2017 DAVID PIZANO S DINKEY DISPATCHER Ot V10.05 HX OF COLONIC MALIGNANCY 04/28/2017 DAVID PIZANO S DINKEY DISPATCHER Ot V45.81 AORTOCORONARY BYPASS 04/28/2017 DAVID PIZANO S DINKEY DISPATCHER Ot V58.69 OTH MED,LT,CURRENT USE 04/28/2017 DAVID PIZANO S DINKEY DISPATCHER Ot V87.41 PERSONAL HISTORY OF ANTINEOPLASTIC CHEMO 04/28/2017 CANDY CORONA MD Ot 173.31 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 04/28/2017 CANDY CORONA MD Ot V72.84 EXAM PRE-OPERATIVE NOS 04/28/2017 CANDY CORONA MD Ot V74.8 SCREEN-BACTERIAL DIS NEC 04/28/2017 Ot V72.84 EXAM PRE- OPERATIVE NOS 04/28/2017 DAVID PIZANO DINKEY DISPATCHER Ot 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, UNSP SITE, EXTRANO 04/28/2017 DAVID PIZANO DINKEY DISPATCHER Ot 285.9 ANEMIA NOS 04/28/2017 DAVID PIZANO S DINKEY DISPATCHER Ot 287.5 THROMBOCYTOPENIA NOS 04/28/2017 DAVID PIZANO DINKEY DISPATCHER Ot 414.00 CORON ATHEROSCLER NOS TYPE VESSEL, NATIV 04/28/2017 DAVID PIZANO DINKEY DISPATCHER Ot V10.05 HX OF COLONIC MALIGNANCY 04/28/2017 DAVID PIZANO S DINKEY DISPATCHER Ot V45.81 AORTOCORONARY BYPASS 04/28/2017 DAVID PIZANO DINKEY DISPATCHER Ot V58.69 OTH MED,LT,CURRENT USE 04/28/2017 DAVID PIZANO DINKEY DISPATCHER Ot V87.41 PERSONAL HISTORY OF ANTINEOPLASTIC CHEMO 04/28/2017 DAVID PIZANO DINKEY DISPATCHER Ot 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, UNSP SITE, EXTRANO 04/28/2017 DAVID PIZANO DINKEY DISPATCHER Ot 414.01 CORONARY ATHEROSCLEROSIS OF [place] CORON 04/28/2017 DAVID PIZANO DINKEY DISPATCHER Ot V10.05 HX OF COLONIC MALIGNANCY 04/28/2017 DAVID PIZANO DINKEY DISPATCHER Ot V45.81 AORTOCORONARY BYPASS 04/28/2017 DAVID PIZANO DINKEY DISPATCHER Ot V58.69 OTH MED,LT,CURRENT USE 04/28/2017 DAVID PIZNAO DINKEY DISPATCHER Ot V87.41 PERSONAL HISTORY OF ANTINEOPLASTIC CHEMO 04/28/2017 ROB ALEX FACC, BRO FACP CCDS Ot 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, INTRA-ABDOMINAL LY 04/28/2017 ROB ALEX FACC, BRO FACP CCDS Ot E78.4 OTHER HYPERLIPIDEMIA 04/28/2017 ROB ALEX FACC, BRO FACP CCDS Ot I25.10 ATHSCL HEART DISEASE OF [place] CORONARY 04/28/2017 RBO ALEX FACC, BRO FACP CCDS Ot 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[place] 04/28/2017 ROB ALEX FACC, BRO FACP CCDS Ot Z85.038 PERSONAL HISTORY OF MALIGNANT NEOPLASM O 04/28/2017 DAVID PIZANO DINKEY DISPATCHER Ot M79.662 PAIN IN LEFT LOWER LEG 04/28/2017 DAVID PIZANO DINKEY DISPATCHER Ot R22.42 LOCALIZED SWELLING, MASS AND LUMP, LEFT 04/28/2017 DAVID PIZANO DINKEY DISPATCHER Ot 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, UNSPECIFIED SITE 04/28/2017 DAVID PIZANO DINKEY DISPATCHER Ot D64.9 ANEMIA, UNSPECIFIED 04/28/2017 PIZANODAVID Ca DINKEY DISPATCHER Ot D69.6 THROMBOCYTOPENIA, UNSPECIFIED 04/28/2017 DAVID PIZANO DINKEY DISPATCHER Ot I25.10 ATHSCL HEART DISEASE OF [place] CORONARY 04/28/2017 PIZANODAVID Ca DINKEY DISPATCHER Ot 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 04/28/2017 PIZANODAVID Ca DINKEY DISPATCHER Ot Z79.01 GROUP HOME (CURRENT) USE OF ANTICOAGULANT 04/28/2017 HARINDER DAVID Ca DINKEY DISPATCHER Ot Z79.82 GROUP HOME (CURRENT) USE OF ASPIRIN 04/28/2017 HARINDER DAVID Ca DINKEY DISPATCHER Ot Z79.899 OTHER GROUP HOME (CURRENT) DRUG THERAPY 04/28/2017 PIZANODAVID Ca DINKEY DISPATCHER Ot Z85.038 PERSONAL HISTORY OF MALIGNANT NEOPLASM O 04/28/2017 HARINDERDAVID DINKEY DISPATCHER Ot 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 BYPASS GRAFT 04/28/2017 ANTONI ALEXANDER Ot 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, UNSPECIFIED SITE 04/28/2017 ANTONI ALEXANDER Ot D64.9 ANEMIA, UNSPECIFIED 04/28/2017 ANTONI ALEXANDER Ot D69.6 THROMBOCYTOPENIA, UNSPECIFIED 04/28/2017 ANTONI ALEXANDER Ot I25.10 ATHSCL HEART DISEASE OF [place] CORONARY 04/28/2017 ANTONI ALEXANDER Ot Z45.2 ENCOUNTER FOR ADJUSTMENT AND MANAGEMENT 04/28/2017 ANTONI ALEXANDER Ot Z79.899 OTHER GROUP HOME (CURRENT) DRUG THERAPY 04/28/2017 ANTONI ALEXANDER Ot Z85.038 PERSONAL HISTORY OF MALIGNANT NEOPLASM O 04/28/2017 ANTONI ALEXANDER Ot 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 BYPASS GRAFT 05/20/2017 KAREN AVALOS DINKEY DISPATCHER Ot E78.4 OTHER HYPERLIPIDEMIA 05/20/2017 BAIMA, KAREN L DINKEY DISPATCHER Ot I10 ESSENTIAL (PRIMARY) HYPERTENSION 05/20/2017 KAREN AVALOS L DINKEY DISPATCHER Ot I25.10 ATHSCL HEART DISEASE OF [place] CORONARY 05/20/2017 KAREN AVALOS L DINKEY DISPATCHER Ot I34.0 NONRHEUMATIC MITRAL (VALVE) INSUFFICIENC 05/22/2017 ANTONI ALEXANDER Shey Ot 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, UNSPECIFIED SITE 05/22/2017 CATHERINE, ANTONI N Ot D64.9 ANEMIA, UNSPECIFIED 05/22/2017 CATHERINE, ANTONI N Ot D69.6 THROMBOCYTOPENIA, UNSPECIFIED 05/22/2017 ANTONI ALEXANDER N Ot I25.10 ATHSCL HEART DISEASE OF [place] CORONARY 05/22/2017 CATHERINE, ANTONI Kat Ot Z45.2 ENCOUNTER FOR ADJUSTMENT AND MANAGEMENT 05/22/2017 ANTONI ALEXANDER Ot Z79.899 OTHER GROUP HOME (CURRENT) DRUG THERAPY 05/22/2017 ANTONI ALEXANDER N Ot Z85.038 PERSONAL HISTORY OF MALIGNANT NEOPLASM O 05/22/2017 ANTONI ALEXANDER Ot 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 BYPASS GRAFT 05/25/2017 BINDUKAREN HERNÁNDEZ DINKEY DISPATCHER Ot E78.4 OTHER HYPERLIPIDEMIA 05/25/2017 BINDUKAREN HERNÁNDEZ L DINKEY DISPATCHER Ot I10 ESSENTIAL (PRIMARY) HYPERTENSION 05/25/2017 BINDUKAREN HERNÁNDEZ L DINKEY DISPATCHER Ot I25.10 ATHSCL HEART DISEASE OF [place] CORONARY 05/25/2017 KAREN AVALOS DINKEY DISPATCHER Ot I34.0 NONRHEUMATIC MITRAL (VALVE) INSUFFICIENC 06/05/2017 CATHERINEANTONI HERNANDEZ Shey Ot 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, UNSPECIFIED SITE 06/05/2017 CATHERINEANTONI HERNANDEZ N Ot D64.9 ANEMIA, UNSPECIFIED 06/05/2017 ANTONI ALEXANDER N Ot D69.6 THROMBOCYTOPENIA, UNSPECIFIED 06/05/2017 CATHERINE, NANIMODESTO N Ot I25.10 ATHSCL HEART DISEASE OF [place] CORONARY 06/05/2017 CATHERINEANTONI Ot Z45.2 ENCOUNTER FOR ADJUSTMENT AND MANAGEMENT 06/05/2017 ANTONI ALEXANDER Ot Z79.899 OTHER MARKETING TEAM LEAD (CURRENT) DRUG THERAPY 06/05/2017 ANTONI ALEXANDER Ot Z85.038 PERSONAL HISTORY OF MALIGNANT NEOPLASM O 06/05/2017 CATHERINEANTONI HERNANDEZ N Ot 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 BYPASS GRAFT 06/09/2017 CATHERINEANTONI HERNANDEZ N Ot 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, UNSPECIFIED SITE 06/09/2017 CATHERINENANIAN N Ot D64.9 ANEMIA, UNSPECIFIED 06/09/2017 CATHERINE, BOBAN N Ot D69.6 THROMBOCYTOPENIA, UNSPECIFIED 06/09/2017 CATHERINE BOBAN N Ot I25.10 ATHSCL HEART DISEASE OF [place] CORONARY 06/09/2017 CATHERINE BOBAN N Ot Z45.2 ENCOUNTER FOR ADJUSTMENT AND MANAGEMENT 06/09/2017 CATHERINE BOBAN N Ot Z79.899 OTHER GROUP HOME (CURRENT) DRUG THERAPY 06/09/2017 CATHERINE BOBAN N Ot Z85.038 PERSONAL HISTORY OF MALIGNANT NEOPLASM O 06/09/2017 CATHERINE, BOBMODESTO N Ot 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 BYPASS GRAFT 06/16/2017 CATHERINE, BOBAN N Ot 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, UNSPECIFIED SITE 06/16/2017 CATHERINENANIAN N Ot D64.9 ANEMIA, UNSPECIFIED 06/16/2017 CATHERINE, BOBAN N Ot D69.6 THROMBOCYTOPENIA, UNSPECIFIED 06/16/2017 CATHERINE, BOBAN N Ot I25.10 ATHSCL HEART DISEASE OF [place] CORONARY 06/16/2017 CATHERINEANTONI N Ot Z45.2 ENCOUNTER FOR ADJUSTMENT AND MANAGEMENT 06/16/2017 CATHERINE BOBAN N Ot Z79.899 OTHER GROUP HOME (CURRENT) DRUG THERAPY 06/16/2017 CATHERINE BOBAN N Ot Z85.038 PERSONAL HISTORY OF MALIGNANT NEOPLASM O 06/16/2017 CATHERINENANIAN N Ot 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 BYPASS GRAFT 06/16/2017 CATHERINE BOBAN N Ot 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, UNSPECIFIED SITE 06/16/2017 CATHERINE BOBAN N Ot D64.9 ANEMIA, UNSPECIFIED 06/16/2017 CATHERINE, BOBAN N Ot D69.6 THROMBOCYTOPENIA, UNSPECIFIED 06/16/2017 CATHERINE, BOBAN N Ot I25.10 ATHSCL HEART DISEASE OF [place] CORONARY 06/16/2017 CATHERINENANIAN N Ot Z45.2 ENCOUNTER FOR ADJUSTMENT AND MANAGEMENT 06/16/2017 CATHERINE BOBAN N Ot Z79.899 OTHER GROUP HOME (CURRENT) DRUG THERAPY 06/16/2017 ANTONI ALEXANDER Shey Ot Z85.038 PERSONAL HISTORY OF MALIGNANT NEOPLASM O 06/16/2017 ANTONI ALEXANDER Shey Ot 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 BYPASS GRAFT 07/20/2017 SOSA ALEGRE MD Ot 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, UNSPECIFIED SITE 07/20/2017 SOSA ALEGRE MD Ot D64.9 ANEMIA, UNSPECIFIED 07/20/2017 SOSA ALEGRE MD Ot D69.6 THROMBOCYTOPENIA, UNSPECIFIED 07/20/2017 JEFF ALEGRE MDNER Ot I25.10 ATHSCL HEART DISEASE OF [place] CORONARY 07/20/2017 SOSA ALEGRE MD Ot Z79.899 OTHER MARKETING TEAM LEAD (CURRENT) DRUG THERAPY 07/20/2017 SOSA ALEGRE MD Ot Z85.038 PERSONAL HISTORY OF MALIGNANT NEOPLASM O 07/20/2017 JEFF ALEGRE MDNER Ot 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 BYPASS GRAFT 08/11/2017 SOSA ALEGRE MD Ot 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, UNSPECIFIED SITE 08/11/2017 SOSA ALEGRE MD Ot D64.9 ANEMIA, UNSPECIFIED 08/11/2017 SOSA ALEGRE MD Ot D69.6 THROMBOCYTOPENIA, UNSPECIFIED 08/11/2017 JEFF ALEGRE MDNER Ot I25.10 ATHSCL HEART DISEASE OF [place] CORONARY 08/11/2017 SOSA ALEGRE MD Ot Z79.899 OTHER MARKETING TEAM LEAD (CURRENT) DRUG THERAPY 08/11/2017 SOSA ALEGRE MD Ot Z85.038 PERSONAL HISTORY OF MALIGNANT NEOPLASM O 08/11/2017 JEFF ALEGRE MDNER Ot 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 BYPASS GRAFT 09/03/2017 SOSA ALEGRE MD Ot 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, UNSPECIFIED SITE 09/03/2017 SOSA ALEGRE MD Ot D64.9 ANEMIA, UNSPECIFIED 09/03/2017 SOSA ALEGRE MD Ot D69.6 THROMBOCYTOPENIA, UNSPECIFIED 09/03/2017 JEFF ALEGRE MDNER Ot I25.10 ATHSCL HEART DISEASE OF [place] CORONARY 09/03/2017 SOSA ALEGRE MD Ot Z79.899 OTHER GROUP HOME (CURRENT) DRUG THERAPY 09/03/2017 SOSA ALEGRE MD Ot Z85.038 PERSONAL HISTORY OF MALIGNANT NEOPLASM O 09/03/2017 JEFF ALEGRE MDNER Ot 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 BYPASS GRAFT 09/16/2017 CODEY ALEX, SOSA Ot 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, UNSPECIFIED SITE 09/16/2017 CODEY ALEX, SOSA Ot D64.9 ANEMIA, UNSPECIFIED 09/16/2017 CODEY ALEX, SOSA Ot D69.6 THROMBOCYTOPENIA, UNSPECIFIED 09/16/2017 CODEY ALEX, SOSA Ot I25.10 ATHSCL HEART DISEASE OF [place] CORONARY 09/16/2017 CODEY ALEX, SOSA Ot Z79.899 OTHER MARKETING TEAM LEAD (CURRENT) DRUG THERAPY 09/16/2017 CODEY ALEX, SOSA Ot Z85.038 PERSONAL HISTORY OF MALIGNANT NEOPLASM O 09/16/2017 CODEY ALEX, SOSA Ot 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 BYPASS GRAFT 10/07/2017 BAIMA, KAREN L DINKEY DISPATCHER Ot E78.5 HYPERLIPIDEMIA, UNSPECIFIED 10/07/2017 BAIMA, KAREN L DINKEY DISPATCHER Ot I10 ESSENTIAL (PRIMARY) HYPERTENSION 10/07/2017 BAIMA, KAREN L DINKEY DISPATCHER Ot I25.10 ATHSCL HEART DISEASE OF [place] CORONARY 10/07/2017 BAIMA, KAREN L DINKEY DISPATCHER Ot I34.0 NONRHEUMATIC MITRAL (VALVE) INSUFFICIENC 10/12/2017 BAIMA, KAREN L DINKEY DISPATCHER Ot E78.5 HYPERLIPIDEMIA, UNSPECIFIED 10/12/2017 BAIMA, KAREN L DINKEY DISPATCHER Ot I10 ESSENTIAL (PRIMARY) HYPERTENSION 10/12/2017 BAIMA, KAREN L DINKEY DISPATCHER Ot I25.10 ATHSCL HEART DISEASE OF [place] CORONARY 10/12/2017 BAIMA, KAREN L DINKEY DISPATCHER Ot I34.0 NONRHEUMATIC MITRAL (VALVE) INSUFFICIENC 10/30/2017 BAIMA, KAREN L DINKEY DISPATCHER Ot E78.5 HYPERLIPIDEMIA, UNSPECIFIED 10/30/2017 BAIMA, KAREN L DINKEY DISPATCHER Ot I10 ESSENTIAL (PRIMARY) HYPERTENSION 10/30/2017 BAIMA, KAREN L DINKEY DISPATCHER Ot I25.10 ATHSCL HEART DISEASE OF [place] CORONARY 10/30/2017 BAIMA, KAREN L DINKEY DISPATCHER Ot I34.0 NONRHEUMATIC MITRAL (VALVE) INSUFFICIENC 11/11/2017 SOSA ALEGRE MD Ot 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, UNSPECIFIED SITE 11/11/2017 SOSA ALEGRE MD Ot D64.9 ANEMIA, UNSPECIFIED 11/11/2017 SOSA ALEGRE MD Ot D69.6 THROMBOCYTOPENIA, UNSPECIFIED 11/11/2017 SOSA ALEGRE MD Ot I25.10 ATHSCL HEART DISEASE OF [place] CORONARY 11/11/2017 SOSA ALEGRE MD Ot Z45.2 ENCOUNTER FOR ADJUSTMENT AND MANAGEMENT 11/11/2017 SOSA ALEGRE MD Ot Z79.899 OTHER GROUP HOME (CURRENT) DRUG THERAPY 11/11/2017 SOSA ALEGRE MD Ot Z85.038 PERSONAL HISTORY OF MALIGNANT NEOPLASM O 11/11/2017 SOSA ALEGRE MD Ot 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 BYPASS GRAFT 11/11/2017 CATHERINE, BOBAN N Ot 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, UNSPECIFIED SITE 11/11/2017 CATHERINE, BOBAN N Ot D64.9 ANEMIA, UNSPECIFIED 11/11/2017 CATHERINE, BOBAN N Ot D69.6 THROMBOCYTOPENIA, UNSPECIFIED 11/11/2017 CATHERINE, BOBAN N Ot I25.10 ATHSCL HEART DISEASE OF [place] CORONARY 11/11/2017 CATHERINE BOBAN N Ot Z45.2 ENCOUNTER FOR ADJUSTMENT AND MANAGEMENT 11/11/2017 CATHERINE, BOBAN N Ot Z79.899 OTHER GROUP HOME (CURRENT) DRUG THERAPY 11/11/2017 CATHERINE, BOBAN N Ot Z85.038 PERSONAL HISTORY OF MALIGNANT NEOPLASM O 11/11/2017 CATHERINE, BOBAN N Ot 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 BYPASS GRAFT 11/13/2017 CATHERINE, BOBAN N Ot 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, UNSPECIFIED SITE 11/13/2017 CATHERINE, BOBAN N Ot D64.9 ANEMIA, UNSPECIFIED 11/13/2017 CATHERINE, BOBAN N Ot D69.6 THROMBOCYTOPENIA, UNSPECIFIED 11/13/2017 CATHERINE, BOBAN N Ot I25.10 ATHSCL HEART DISEASE OF [place] CORONARY 11/13/2017 CATHERINE, BOBAN N Ot Z45.2 ENCOUNTER FOR ADJUSTMENT AND MANAGEMENT 11/13/2017 CATHERINE, BOBAN N Ot Z79.899 OTHER MARKETING TEAM LEAD (CURRENT) DRUG THERAPY 11/13/2017 CATHERINE, BOBAN N Ot Z85.038 PERSONAL HISTORY OF MALIGNANT NEOPLASM O 11/13/2017 CATHERINE, BOBAN N Ot 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 BYPASS GRAFT 01/01/2018 CATHERINE BOBAN N Ot 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, UNSPECIFIED SITE 01/01/2018 CATHERINE, BOBAN N Ot D64.9 ANEMIA, UNSPECIFIED 01/01/2018 CATHERINE, BOBAN N Ot D69.6 THROMBOCYTOPENIA, UNSPECIFIED 01/01/2018 CATHERINE, BOBAN N Ot I25.10 ATHSCL HEART DISEASE OF [place] CORONARY 01/01/2018 CATHERINE, BOBAN N Ot Z79.899 OTHER GROUP HOME (CURRENT) DRUG THERAPY 01/01/2018 CATHERINE, BOBAN N Ot Z85.038 PERSONAL HISTORY OF MALIGNANT NEOPLASM O 01/01/2018 CATHERINE, BOBAN N Ot 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 BYPASS GRAFT 01/05/2018 CATHERINE, BOBAN N Ot 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, UNSPECIFIED SITE 01/05/2018 CATHERINE, BOBAN N Ot D64.9 ANEMIA, UNSPECIFIED 01/05/2018 CATHERINE, BOBAN N Ot D69.6 THROMBOCYTOPENIA, UNSPECIFIED 01/05/2018 CATHERINE, BOBAN N Ot I25.10 ATHSCL HEART DISEASE OF [place] CORONARY 01/05/2018 CATHERINE, BOBAN N Ot Z79.899 OTHER GROUP HOME (CURRENT) DRUG THERAPY 01/05/2018 CATHERINE, BOBAN N Ot Z85.038 PERSONAL HISTORY OF MALIGNANT NEOPLASM O 01/05/2018 CATHERINE, BOBAN N Ot 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 BYPASS GRAFT 03/19/2018 CATHERINE, BOBAN N Ot 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, UNSPECIFIED SITE 03/19/2018 CATHERINE, BOBAN N Ot D64.9 ANEMIA, UNSPECIFIED 03/19/2018 CATHERINE, BOBAN N Ot D69.6 THROMBOCYTOPENIA, UNSPECIFIED 03/19/2018 CATHERINE, BOBAN N Ot I25.10 ATHSCL HEART DISEASE OF [place] CORONARY 03/19/2018 CATHERINE, BOBAN N Ot Z79.899 OTHER GROUP HOME (CURRENT) DRUG THERAPY 03/19/2018 CATHERINE, BOBAN N Ot Z85.038 PERSONAL HISTORY OF MALIGNANT NEOPLASM O 03/19/2018 CATHERINE, BOBAN N Ot 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 BYPASS GRAFT 04/11/2018 CATHERINE, BOBAN N Ot 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, UNSPECIFIED SITE 04/11/2018 CATHERINE, BOBAN N Ot D64.9 ANEMIA, UNSPECIFIED 04/11/2018 CATHERINE, BOBAN N Ot D69.6 THROMBOCYTOPENIA, UNSPECIFIED 04/11/2018 CATHERINE, BOBAN N Ot I25.10 ATHSCL HEART DISEASE OF [place] CORONARY 04/11/2018 CATHERINE, BOBAN N Ot Z79.899 OTHER MARKETING TEAM LEAD (CURRENT) DRUG THERAPY 04/11/2018 CATHERINE, BOBAN N Ot Z85.038 PERSONAL HISTORY OF MALIGNANT NEOPLASM O 04/11/2018 CATHERINE, BOBAN N Ot 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 BYPASS GRAFT 04/14/2018 CATHERINE, BOBAN N Ot 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, UNSPECIFIED SITE 04/14/2018 CATHERINE, BOBAN N Ot D64.9 ANEMIA, UNSPECIFIED 04/14/2018 CATHERINE, BOBAN N Ot D69.6 THROMBOCYTOPENIA, UNSPECIFIED 04/14/2018 CATHERINE, BOBAN N Ot I25.10 ATHSCL HEART DISEASE OF [place] CORONARY 04/14/2018 CATHERINE, BOBAN N Ot Z79.899 OTHER GROUP HOME (CURRENT) DRUG THERAPY 04/14/2018 CATHERINE, BOBAN N Ot Z85.038 PERSONAL HISTORY OF MALIGNANT NEOPLASM O 04/14/2018 CATHERINE, BOBAN N Ot 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 BYPASS GRAFT 06/07/2018 CATHERINE, BOBAN N Ot 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, UNSPECIFIED SITE 06/07/2018 CATHERINE, BOBAN N Ot D64.9 ANEMIA, UNSPECIFIED 06/07/2018 CATHERINE, BOBAN N Ot D69.6 THROMBOCYTOPENIA, UNSPECIFIED 06/07/2018 CATHERINE, BOBAN N Ot I25.10 ATHSCL HEART DISEASE OF [place] CORONARY 06/07/2018 CATHERINE, BOBAN N Ot Z79.899 OTHER MARKETING TEAM LEAD (CURRENT) DRUG THERAPY 06/07/2018 CATHERINE, BOBAN N Ot Z85.038 PERSONAL HISTORY OF MALIGNANT NEOPLASM O 06/07/2018 CATHERINE, BOBAN N Ot 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 BYPASS GRAFT 06/08/2018 CATHERINE, BOBAN N Ot 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, UNSPECIFIED SITE 06/08/2018 CATHERINE, BOBAN N Ot D64.9 ANEMIA, UNSPECIFIED 06/08/2018 CATHERINE, BOBAN N Ot D69.6 THROMBOCYTOPENIA, UNSPECIFIED 06/08/2018 ANTONI ALEXANDER Ot I25.10 ATHSCL HEART DISEASE OF [place] CORONARY 06/08/2018 ANTONI ALEXANDER Ot Z79.899 OTHER MARKETING TEAM LEAD (CURRENT) DRUG THERAPY 06/08/2018 ANTONI ALEXANDER Ot Z85.038 PERSONAL HISTORY OF MALIGNANT NEOPLASM O 06/08/2018 ANTONI ALEXANDER Ot 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 BYPASS GRAFT Procedures Code Description Performed By Performed On 21.32 NASAL LES DESTRUCT NEC 05/05/2014 51.23 LAPAROSCOPIC CHOLECYSTECTOMY 05/05/2014 Results Test Result Range VIT B-12 - 07/23/16 14:00 Vitamin B12 259.00 pg/mL 213.00-816.00 Rapid Plasma Reagin (RPR), Qualitative Test - 07/23/16 14:00 RPR Non Reactive Non Reactive Sed Rate - 10/15/17 14:10 Sed Rate 7 mm/hr 0-9 Encounters ACCT No. Visit Date/Time Discharge Status Pt. Type Provider Facility Loc./Unit Complaint [id number] 07/19/2018 05:39:00 07/19/2018 08:56:00 DIS Outpatient CANDY CORONA MD [facility] PREOP PORT REMOVAL [id number] 06/10/2018 08:50:00 06/10/2018 23:59:59 CLS Outpatient ANTONI ALEXANDER Shey [facility] ONC [id number] 03/19/2018 10:03:00 04/11/2018 00:01:00 DIS Outpatient ANTONI ALEXANDER [facility] ONC [id number] 02/04/2018 09:27:00 02/04/2018 23:59:59 CLS Outpatient CATHERINE NANIMODESTO Kat [facility] ONC [id number] 10/16/2017 10:49:00 11/11/2017 16:28:00 DIS Outpatient SOSA ALEGRE MD [facility] ONC [id number] 10/06/2017 08:57:00 10/06/2017 23:59:59 CLS Outpatient KAREN AVALOS [facility] LAB I25.10 I10 E78.4 I34.0 [id number] 09/03/2017 10:06:00 09/16/2017 00:01:00 DIS Outpatient SOSA ALEGRE MD [facility] ONC [id number] 05/21/2017 09:31:00 06/16/2017 11:32:00 DIS Outpatient ANTONI ALEXANDER [facility] ONC [id number] 04/23/2017 12:17:00 06/16/2017 11:29:00 DIS Outpatient ANTONI ALEXANDER [facility] ONC [id number] 04/28/2017 11:54:00 04/28/2017 23:59:59 CLS Outpatient KAREN AVALOS [facility] CARD I25.10 [id number] 03/26/2017 09:09:00 04/11/2017 00:01:00 DIS Outpatient ANTONI ALEXANDER [facility] ONC [id number] 01/29/2017 08:40:00 02/18/2017 00:01:00 DIS Outpatient ANTONI ALEXANDER [facility] ONC [id number] 10/26/2016 09:23:00 10/26/2016 10:32:00 DIS Emergency BE DO JUAN MIGUEL K [facility] ER R HAND KNUCKLE INJ [id number] 10/09/2016 12:45:00 10/15/2016 00:01:00 DIS Outpatient ANTONI ALEXANDER [facility] ONC [id number] 05/29/2016 10:46:00 07/16/2016 00:01:00 DIS Outpatient ANTONI ALEXANDER [facility] ONC [id number] 03/07/2016 11:49:00 04/14/2016 10:47:00 DIS Outpatient ANTONI ALEXANDER [facility] ONC [id number] 12/06/2015 09:32:00 12/12/2015 00:01:00 DIS Outpatient ANTONI ALEXANDER [facility] ONC [id number] 10/25/2015 10:38:00 10/25/2015 23:59:59 CLS Outpatient DAVID PIZANO [facility] ONC [id number] 10/04/2015 09:17:00 10/04/2015 10:19:00 DIS Emergency XENA ALEX, CEDRICK Mckinney [facility] ER LEFT LOWER LEG SWELLING [id number] 10/01/2015 12:06:00 10/01/2015 23:59:59 CLS Outpatient DAVID PIZANO DINKEY DISPATCHER [facility] RAD PAIN AND SWELLING LT LEG [id number] 09/28/2015 11:10:00 09/28/2015 13:35:00 DIS Emergency GIUSEPPE MTZ [facility] ER R LEG SWELLING [id number] 07/23/2015 18:37:00 07/23/2015 21:51:00 DIS Emergency JERMAINE ALEX, ELBERT Diaz [facility] ER L ARM SWELLING [id number] 06/21/2015 08:41:00 06/21/2015 23:59:59 CLS Outpatient ROB ALEX FACC, BRO SALES CCDS [facility] LAB [id number] 06/21/2015 08:34:00 06/21/2015 23:59:59 CLS Outpatient ANOTNI ALEXANDER [facility] ONC [id number] 03/29/2015 08:48:00 04/11/2015 00:01:00 DIS Outpatient ANTONI ALEXANDER [facility] ONC [id number] 11/16/2014 09:47:00 01/03/2015 00:01:00 DIS Outpatient ANTONI ALEXANDER [facility] ONC [id number] 11/16/2014 09:47:00 11/16/2014 23:59:59 CLS Outpatient DAVID PIZANOP [facility] ONC [id number] 08/24/2014 13:21:00 08/24/2014 23:59:59 CLS Outpatient ANTONI ALEXANDER [facility] ONC [id number] 08/07/2014 06:20:00 08/07/2014 10:20:00 DIS Outpatient CJ ALEX, CANDY Parson [facility] SDC HX COLON CANCER; DARK TARRY STOOLS [id number] 07/11/2014 09:51:00 07/11/2014 11:33:00 DIS Emergency JERMAINE ALEX, ELBERT Diaz [facility] ER FALL LEFT WRIST/RIB PAIN [id number] 06/29/2014 12:06:00 06/29/2014 23:59:59 CLS Outpatient DAVID PIZANO [facility] ONC [id number] 05/04/2014 08:34:00 06/07/2014 00:01:00 DIS Outpatient ANTONI ALEXANDER [facility] ONC [id number] 05/31/2014 06:05:00 05/31/2014 11:45:00 DIS Outpatient CANDY CORONA MD [facility] SDC BASAL CELL CARCINOMA [id number] 05/30/2014 10:25:00 05/30/2014 23:59:59 CLS Outpatient CANDY CORONA MD [facility] PREOP SWAB [id number] 05/26/2014 08:04:00 05/26/2014 23:59:59 CLS Outpatient CANDY CORONA MD [facility] PREOP BASAL CELL CARCINOMA [id number] 05/05/2014 00:08:00 05/06/2014 10:20:00 DIS Inpatient CANDY CORONA MD [facility] SURGICAL ABD PAIN W/ PROBABLE CHOLECYSTITIS [id number] 03/09/2014 08:14:00 03/09/2014 23:59:59 CLS Outpatient DAVID PIZANOP [facility] ONC [id number] 02/09/2014 08:46:00 02/14/2014 00:01:00 DIS Outpatient ANTONI ALEXANDER [facility] ONC [id number] 01/27/2014 09:41:00 01/27/2014 14:46:00 DIS Outpatient CANDY CORONA MD [facility] SDC SKIN LESION LEFT CHEEK [id number] 01/26/2014 13:38:00 01/26/2014 23:59:59 CLS Outpatient CANDY CORONA MD [facility] PREOP SKIN LESION LEFT CHEEK [id number] 11/16/2013 09:34:00 11/16/2013 23:59:59 CLS Outpatient DAVID PIZANO [facility] ONC [id number] 10/19/2013 08:18:00 10/25/2013 00:01:00 DIS Outpatient ANTONI ALEXANDER [facility] ONC [id number] 08/24/2013 09:08:00 08/24/2013 23:59:59 CLS Outpatient BRO RIVAS MD, FACC, FACP CCDS [facility] LAB [id number] 07/27/2013 09:06:00 07/27/2013 23:59:59 CLS Outpatient DAVID PIZANO [facility] ONC [id number] 06/29/2013 08:48:00 07/05/2013 00:01:00 DIS Outpatient ANTONI ALEXANDER [facility] ONC [id number] 04/06/2013 08:49:00 04/06/2013 23:59:59 CLS Outpatient DAVID PIZANO [facility] ONC [id number] 03/07/2013 08:28:00 03/08/2013 00:01:00 DIS Outpatient ANTONI ALEXANDER [facility] ONC [id number] 02/14/2013 12:13:00 02/14/2013 23:59:59 CLS Outpatient BRO RIVAS MD, FACC, FACP CCDS [facility] CARD CAD,H/O CABG, HLP,STATIN [place] [id number] 12/08/2012 09:08:00 12/08/2012 23:59:59 CLS Outpatient DAVID PZIANOP [facility] ONC OV [id number] 11/11/2012 09:19:00 11/17/2012 00:01:00 DIS Outpatient ANTONI ALEXANDER [facility] ONC OV [id number] 11/16/2012 12:05:00 11/16/2012 17:30:00 DIS Outpatient BRO RIVAS MD, FACC, FACP CCDS [facility] CATH ABN STRESS TEST,CAD, HLP, HTN, SOB [id number] 07/21/2018 08:00:00 PEN Davis CORONA MD, CANDY Parson [facility] HX COLON CANCER [id number] 07/30/2015 03:20:00 Document Registration [id number] 08/03/2014 05:47:00 Document Registration [id number] 11/01/2012 11:56:00 Document Registration [id number] 08/19/2012 07:52:00 Document Registration [id number] 08/02/2012 08:28:00 Document Registration [id number] 07/29/2012 07:40:00 Document Registration [id number] 07/22/2012 09:48:00 Document Registration [id number] 06/28/2012 08:42:00 Document Registration [id number] 05/04/2012 10:22:00 Document Registration [id number] 04/29/2012 08:56:00 Document Registration [id number] 04/22/2012 08:12:00 Document Registration [id number] 02/04/2012 08:47:00 Document Registration [id number] 01/07/2012 09:02:00 Document Registration [id number] 09/18/2011 08:12:00 Document Registration [id number] 07/17/2011 08:39:00 Document Registration [id number] 06/19/2011 09:37:00 Document Registration [id number] 02/27/2011 08:30:00 Document Registration [id number] 01/23/2011 08:19:00 Document Registration [id number] 01/23/2011 08:18:00 Document Registration [id number] 12/05/2010 05:52:00 Document Registration [id number] 10/08/2010 08:16:00 Document Registration [id number] 09/23/2010 10:48:00 Document Registration [id number] 09/23/2010 10:44:00 Document Registration [id number] 09/05/2010 09:29:00 Document Registration [id number] 09/05/2010 08:23:00 Document Registration [id number] 07/04/2010 08:15:00 Document Registration [id number] 06/04/2010 08:29:00 Document Registration [id number] 03/21/2010 11:23:00 Document Registration [id number] 03/14/2010 09:32:00 Document Registration [id number] 03/14/2010 09:31:00 Document Registration [id number] 03/29/2015 08:48:47 ACT Document Registration [id number] 10/15/2017 14:02:00 10/15/2017 23:59:00 DIS Outpatient Esha Botello [id number] 07/23/2016 15:16:00 07/23/2016 23:59:00 DIS Outpatient Esha Botello
[2018-07-21] MEDS ORDERED: LACTATED RINGERS 1,000 ML IV PRN (08:03)
[2018-07-21 08:15] VITALS: BP 159/90
[2018-07-21] MEDS ORDERED: ceFAZolin INJECTION 1,000 MG in NS (IVPB) 50 ML IV ONE (08:15)
--- NOTE | 2018-07-21 08:25 | History & Physicial ---
History of Present Illness History of Present Illness Reason for visit/HPI For removal of infusaport Date of Admission 07/21/18 Date Seen by a Provider: Jul 21, 2018 Time Seen by a Provider: 08:23 I consulted on this patient on 07/21/18 08:23 Attending Physician Candy Corona MD Admitting Physician Esha Botello MD Consult Allergies and Home Medications Allergies Coded Allergies: No Known Drug Allergies (Unverified , 07/19/18) Home Medications Aspirin 81 Mg Tab.chew, 81 MG PO DAILY, (Reported) Lisinopril 10 Mg Tablet, 10 MG PO DAILY, (Reported) Simvastatin 40 Mg Tablet, 40 MG PO DAILY, (Reported) Patient Home Medication List Home Medication List Reviewed: Yes Past Wjkvcce-Eehepp-Tsmljs Hx Patient Social History Employed/Student: retired Former Smoker, Quit: Jul 19, 1974 2nd Hand Smoke Exposure: No Recent Foreign Travel: No Contact w/other who traveled: No Recent Hopitalizations: No Immunizations Up To Date Date of Pneumonia Vaccine: November 17, 2011 Date of Influenza Vaccine: Apr 28, 2014 Seasonal Allergies Seasonal Allergies: No Surgeries Yes (COLON RESECTION, 5 BYPASS SX, CAROTID ENDARTERECTOMY, port, BCC excision) Abdominal, Bowel Surgery, Cardiac, CABG, Gallbladder, Vascular Surgery Respiratory Yes (HAD A SPONTANEOUS PNEUMOTHORAX WHEN HE WAS IN THE WAR IN [place]) Currently Using CPAP: No Currently Using BIPAP: No Cardiovascular Yes (HAS HAD A HX OF TACHYCARDIA, HX CABG) Coronary Artery Disease, High Cholesterol, Hypertension Neurological Yes (MEMORY PROBLEMS) Dementia Reproductive System Hx Reproductive Disorders: No Sexually Transmitted Disease: No HIV/AIDS: No Genitourinary No Gastrointestinal Yes (COLON CANCER) Gastroesophageal Reflux, Diverticulosis Musculoskeletal No Endocrine History of Endocrine Disorders: No HEENT History of HEENT Disorders: No Loss of Vision: Denies Hearing Impairment: Denies Cancer Yes Lymphoma, Colon Did You Recieve Any Treatments: Yes Type of Treatment: Chemotherapy, Surgical Intervention Psychosocial History of Psychiatric Problem: No Integumentary History of Skin or Integumenta: No Blood Transfusions History of Blood Disorders: No Adverse Reaction to a Blood Tr: No Family Medical History Family Hx: FH: heart disease 19 FATHER 19 MOTHER HEART Review of Systems Constitutional: no symptoms reported EENTM: no symptoms reported Respiratory: no symptoms reported Gastrointestinal: no symptoms reported Genitourinary: no symptoms reported Musculoskeletal: no symptoms reported Skin: no symptoms reported Psychiatric/Neurological: No Symptoms Reported Physical Exam Vital Signs Capillary Refill : Height, Weight, BMI Height: 5'10.00" Weight: 200lbs. 2.3oz. 90.599233iv; 28.7 BMI Method:Stated General Appearance: No Apparent Distress Neck: Normal Inspection Respiratory: Lungs Clear Cardiovascular: Regular Rate, Rhythm Gastrointestinal: Non Tender, Soft Extremity: Normal Inspection Neurologic/Psychiatric: Alert, Oriented x3 Skin: Warm/Dry Assessment/Plan Assessment and Plan Gentleman with treated colon cancer. For removal of infusaport Admission Diagnosis Admission Status: Other (Outpt Proc) CANDY CORONA MD Jul 21, 2018 08:25
--- NOTE | 2018-07-21 08:26 | Progress Note-Pre Operative ---
Pre-Operative Progress Note H&P Reviewed The H&P was reviewed, patient examined and no changes noted. Date Seen by Provider: Jul 21, 2018 Time Seen by Provider: 08:25 Date H&P Reviewed: Jul 21, 2018 Time H&P Reviewed: 08:25 Pre-Operative Diagnosis: Treated colon cancer CANDY CORONA MD Jul 21, 2018 08:26
[2018-07-21] MEDS ORDERED: BUP/EPI 0.5% 1:200,000 (SENSORCAINE) 30 ML VIAL ONE (09:18)
[2018-07-21] MEDS ORDERED: ONDANSETRON 4 MG/2 ML (SDV) Z0FRAN ONE (09:34)
[2018-07-21] MEDS ORDERED: proPOfol 200 MG/20 ML (DIPRIVAN) VIAL IV ONE (09:34)
[2018-07-21] MEDS ORDERED: MIDAZOLAM 2 MG/2 ML (VERSED) VIAL ONE (09:35)
[2018-07-21] MEDS ORDERED: diphenhydrAMINE 50 MG/ML INJ (BENADRYL) ONE (09:35)
[2018-07-21] MEDS ORDERED: PROPOFOL INJECTION 50 ML IV ONE ×2 (09:40→10:09)
[2018-07-21] MEDS ORDERED: ONDANSETRON 4 MG/2 ML (SDV) Z0FRAN IVP PRN (11:00)
[2018-07-21] MEDS ORDERED: MEPERIDINE (DEMEROL) INJ 50 MG/ML IVP ONE (11:00)
[2018-07-21] MEDS ORDERED: morphine INJ 10 MG/ML 1ML (SYR OR VIAL) IVP ONE (11:00)
[2018-07-21 11:05] VITALS: BP 152/82
--- NOTE | 2018-07-21 11:21 | Operative Report ---
Operative Report Date of Procedure/Surgery Jul 21, 2018 Surgeon (s) CANDY CORONA MD Machine Lacer (s): N/A Post-Operative Diagnosis Impacted Groshong catheter Procedure Performed Exploration of left infraclavicular region with fluoroscopy Description of Procedure Anesthesia Type: MAC Estimated blood loss (mL): Minimal Specimen(s) collected/removed None Description of the Procedure Indication for the procedure: This gentleman came in to have an existing Groshong catheter, that had been used for adjuvant chemotherapy many years ago, removed. Informed consent was obtained after reviewing the procedure in detail. Description of procedure: He was placed supine on the operating table and our COMB SETTER administered sedation, monitoring his vital signs. Ancef was administered intravenously as prophylaxis against wound infection. Left infraclavicular fossa was prepared and draped in the usual sterile manner. Local anesthesia was achieved using 0.5 percent Marcaine with epinephrine. A secondary incision was made along the previous scar and the catheter was initially disconnected from the port. Despite blunt dissection up to the level of the entry into the subclavian vein, the catheter could not be removed. Therefore, we obtained fluoroscopy confirming intactness of the distal catheter within the superior vena cava. It was found to be intact. Therefore, to avoid the risk of a free floating catheter, which could potentially lead to acute pulmonary embolism and iatrogenic injury to the subclavian vein, further attempts were abandoned. I have contacted the vascular surgery team at [facility] in [place], with the intention of arranging an outpatient procedure to have the catheter removed with the necessary preparedness. The port was then reconnected and secured to the pectoralis muscle using 2-0 Vicryl sutures. The incision was then closed using 3-0 Vicryl for the subcutaneous tissue and 4-0 Vicryl for skin, in a subcuticular fashion. Steri-Strips and a nonadherent dressing were then applied. Tolerated the procedure well and was taken to the recovery room in a stable condition. Findings of the Procedure See op report Allergies and Home Medications Allergies Coded Allergies: No Known Drug Allergies (Unverified , 07/19/18) Home Medications Aspirin 81 Mg Tab.chew, 81 MG PO DAILY, (Reported) Lisinopril 10 Mg Tablet, 10 MG PO DAILY, (Reported) Simvastatin 40 Mg Tablet, 40 MG PO DAILY, (Reported) Patient Home Medication List Home Medication List Reviewed: Yes CANDY CORONA MD Jul 21, 2018 11:21
[2018-07-21] MEDS ORDERED: TRAM50TA2 PO (11:22)
--- NOTE | 2018-07-21 11:23 | Discharge Inst-Simple/Standard ---
Discharge Inst-Standard Discharge Medications New, Converted or Re-Newed RX: RX on Chart Patient Instructions/Follow Up Plan of Care/Instructions/FU: Band-Aids off in 48 hours. We will notify him about an outpatient procedure, that would be scheduled in [facility] Activity as Tolerated: Yes Discharge Diet: No Restrictions CANDY CORONA MD Jul 21, 2018 11:23
[2018-07-21 11:35] VITALS: BP 161/93
[2018-07-21 11:45] VITALS: BP 161/93
--- NOTE | 2018-07-21 11:58 | Anesthesia-General Post-Op ---
MAC Patient Condition Mental Status/LOC: Same as Preop Cardiovascular: Satisfactory Nausea/Vomiting: Absent Respiratory: Satisfactory Pain: Controlled Complications: Absent Post Op Complications Complications None Follow Up Care/Instructions Patient Instructions None needed. Anesthesiology Discharge Order Discharge Order Patient is doing well, no complaints, stable vital signs, no apparent adverse anesthesia problems. No complications reported per nursing. KEELY BRICENO CRNA Jul 21, 2018 11:58
--- NOTE | 2018-07-21 12:11 | Diagnostic Imaging Report ---
INDICATION: Groshong catheter removal. FINDINGS: Fluoroscopy was provided in the OR during Groshong catheter removal. 2 seconds of fluoroscopy was utilized. IMPRESSION: Fluoroscopy for Groshong catheter removal. Dictated by: Dictated on workstation # [id number]
== END 2018-07-21 11:45 | disposition home or self-care (01) ==
LOC: SDC 07:46
PROVIDERS: ATTEND Surgery
DX: Z85.038 Personal history of other malignant neoplasm of large intestine (principal); I10 Essential (primary) hypertension; I25.10 Atherosclerotic heart disease of native coronary artery without angina pectoris; K21.9 Gastro-esophageal reflux disease without esophagitis; E78.00 Pure hypercholesterolemia, unspecified; Z95.1 Presence of aortocoronary bypass graft; Z87.891 Personal history of nicotine dependence; Z79.82 Long term (current) use of aspirin; Z79.899 Other long term (current) drug therapy; Z85.828 Personal history of other malignant neoplasm of skin; Z92.21 Personal history of antineoplastic chemotherapy; Z11.2 Encounter for screening for other bacterial diseases
CPT/HCPCS: 87081

== ENCOUNTER 2018-11-25 09:44 | Outpatient (RCR) | payer MEDICARE, OTHER ==
[2018-11-25 10:01] LABS: BASOPHILS % (AUTO) 0 % (0-10); EOSINOPHILS # (AUTO) 0.1 10^3/uL (0.0-0.3); EOSINOPHILS % (AUTO) 1 % (0-10); HEMATOCRIT 44 % (40-54); HEMOGLOBIN 14.6 G/DL (13.3-17.7); LYMPHOCYTES # (AUTO) 1.2 X 10^3 (1.0-4.0); LYMPHOCYTES % (AUTO) 13 % (12-44); MEAN CORPUSCULAR HEMOGLOBIN 30 PG (25-34); MEAN CORPUSCULAR HGB CONC 33 G/DL (32-36); MEAN CORPUSCULAR VOLUME 90 FL (80-99); MEAN PLATELET VOLUME 10.3 FL (7.4-10.4); MONOCYTES # (AUTO) 1.1 X 10^3 (0.0-1.0); MONOCYTES % (AUTO) 12 % (0-12); NEUTROPHILS # (AUTO) 7.1 X 10^3 (1.8-7.8); NEUTROPHILS % (AUTO) 74 % (42-75); PLATELET COUNT 239 10^3/uL (130-400); RED CELL DISTRIBUTION WIDTH 15.5 % (10.0-14.5); WHITE BLOOD COUNT 9.5 10^3/uL (4.3-11.0)
[2018-11-25 10:21] LABS: ALANINE AMINOTRANSFERASE 14 U/L (0-55); ALBUMIN 4.1 GM/DL (3.2-4.5); ALKALINE PHOSPHATASE 98 U/L (40-136); BILIRUBIN,TOTAL 0.5 MG/DL (0.1-1.0); BUN/CREATININE RATIO 16; CALCIUM 9.4 MG/DL (8.5-10.1); CARBON DIOXIDE 22 MMOL/L (21-32); CHLORIDE 112 MMOL/L (98-107); CREATININE SERUM 0.83 MG/DL (0.60-1.30); GFR ESTIMATED > 60; GLUCOSE 101 MG/DL (70-105); POTASSIUM 4.3 MMOL/L (3.6-5.0); SODIUM 143 MMOL/L (135-145); TOTAL PROTEIN 6.1 GM/DL (6.4-8.2)
== END 2019-02-23 | disposition home or self-care (01) ==
LOC: ONC 09:44
PROVIDERS: ATTEND Internal Medicine Hematology & Oncology
DX: C83.10 Mantle cell lymphoma, unspecified site (principal); Z85.038 Personal history of other malignant neoplasm of large intestine; L57.0 Actinic keratosis; D64.9 Anemia, unspecified; D69.6 Thrombocytopenia, unspecified; F03.90 Unspecified dementia, unspecified severity, without behavioral disturbance, psychotic disturbance, mood disturbance, and anxiety; I25.10 Atherosclerotic heart disease of native coronary artery without angina pectoris; Z95.1 Presence of aortocoronary bypass graft; Z79.899 Other long term (current) drug therapy; Z79.82 Long term (current) use of aspirin
CPT/HCPCS: 80053; 82378; 83615; 85025; 99213

== ENCOUNTER → 2018-12-08 | Outpatient (CLI) | payer MEDICARE, OTHER ==
[2018-12-08 11:50] LABS: ALANINE AMINOTRANSFERASE 32 U/L (0-55); ALBUMIN 3.8 GM/DL (3.2-4.5); ALKALINE PHOSPHATASE 204 U/L (40-136); BILIRUBIN,TOTAL 0.6 MG/DL (0.1-1.0); BUN/CREATININE RATIO 15; CALCIUM 9.2 MG/DL (8.5-10.1); CARBON DIOXIDE 24 MMOL/L (21-32); CHLORIDE 108 MMOL/L (98-107); CHOLESTEROL 160 MG/DL (< 200); CREATININE SERUM 0.78 MG/DL (0.60-1.30); GFR ESTIMATED > 60; GLUCOSE 102 MG/DL (70-105); HDL CHOLESTEROL 37 MG/DL (40-60); POTASSIUM 4.4 MMOL/L (3.6-5.0); SODIUM 142 MMOL/L (135-145); TOTAL PROTEIN 6.2 GM/DL (6.4-8.2); TRIGLYCERIDES 76 MG/DL (<150); VLDL CHOLESTEROL 15 MG/DL (5-40)
== END ==
LOC: LAB 10:53
PROVIDERS: ATTEND Nurse Practitioner Family
DX: I25.10 Atherosclerotic heart disease of native coronary artery without angina pectoris (principal); E78.5 Hyperlipidemia, unspecified; I10 Essential (primary) hypertension
CPT/HCPCS: 36415; 80053; 80061

== ENCOUNTER 2019-07-11 10:34 | Emergency (ER) | payer MEDICARE, OTHER ==
[~2019-07-11] VITALS: Ht 167.7 cm; Wt 81.8 kg
[2019-07-11] MEDS ORDERED: NS IV 1000 ML 1,000 ML IV SCH (10:46)
--- NOTE | 2019-07-11 10:51 | ED Fall/Injury ---
General Stated Complaint: FALL Source: patient, family, spouse Exam Limitations: no limitations History of Present Illness Date Seen by Provider: Jul 11, 2019 Time Seen by Provider: 10:35 Initial Comments Patient presents ER by private conveyance with his spouse and son and chief complaint that Thursday, 3 days ago he experienced a fall. It was unwitnessed and he was not down for very long. He does not know why he is falling but he has very poor memory secondary to dementia. He does use a walker. He does not smoke cigarettes and denies shortness of breath cough nausea vomiting diarrhea constipation fever chills or pain. He did have some intermittent pain in his left lower abdomen. He has a history of colon cancer and lymphoma status post 13 years of the therapy. History of coronary disease followed by Dr. Hill however he does not follow with doctors except Dr. Martins for primary care. Does not take any medications anymore because he doesn't like to take them. He is not on any blood thinners and has not taken anything for pain. Allergies and Home Medications Allergies Coded Allergies: No Known Drug Allergies (Unverified , 07/19/18) Home Medications Aspirin 81 Mg Tab.chew, 81 MG PO DAILY, (Reported) Lisinopril 10 Mg Tablet, 10 MG PO DAILY, (Reported) Simvastatin 40 Mg Tablet, 40 MG PO DAILY, (Reported) Tramadol HCl 50 Mg Tablet, 50 MG PO Q12H PRN for PAIN-MILD TO MODERATE Prescribed by: CANDY CORONA on 07/21/18 1122 Patient Home Medication List Home Medication List Reviewed: Yes Review of Systems Review of Systems Constitutional: No chills, No diaphoresis, No fever, No malaise Eyes: Denies Blindness, Denies Blurred Vision Ears, Nose, Mouth, Throat: denies ear pain, denies ear discharge Respiratory: No cough, No short of breath Cardiovascular: No chest pain, No edema Gastrointestinal: No abdominal pain, No constipation, No diarrhea Genitourinary: No discharge, No dysuria Musculoskeletal: No back pain, No joint pain Skin: No pruritus, No rash All Other Systems Reviewed Negative Unless Noted: Yes Past Xehkimw-Kuctog-Axdcxx Hx Patient Social History Alcohol Use: Denies Use Recreational Drug Use: No Smoking Status: Former Smoker Type Used: Cigarettes, Smokeless Tobacco (former) Former Smoker, Quit: Jul 19, 1974 2nd Hand Smoke Exposure: No Recent Foreign Travel: No Contact w/Someone Who Travel: No Recent Hopitalizations: No Immunizations Up To Date Date of Pneumonia Vaccine: November 17, 2011 Date of Influenza Vaccine: Apr 28, 2014 Seasonal Allergies Seasonal Allergies: No Past Medical History Surgeries: Yes (COLON RESECTION, 5 BYPASS SX, CAROTID ENDARTERECTOMY, port, BCC excision) Abdominal, Bowel Surgery, Cardiac, CABG, Gallbladder, Vascular Surgery Respiratory: Yes (HAD A SPONTANEOUS PNEUMOTHORAX WHEN HE WAS IN THE WAR IN [place]) Currently Using CPAP: No Currently Using BIPAP: No Cardiac: Yes (HAS HAD A HX OF TACHYCARDIA, HX CABG) Coronary Artery Disease, High Cholesterol, Hypertension Neurological: Yes (MEMORY PROBLEMS) Dementia Reproductive Disorders: No Sexually Transmitted Disease: No HIV/AIDS: No Genitourinary: No Gastrointestinal: Yes (COLON CANCER) Gastroesophageal Reflux, Diverticulosis Musculoskeletal: No Endocrine: No HEENT: No Loss of Vision: Denies Hearing Impairment: Denies Cancer: Yes Lymphoma, Colon Did You Recieve Any Treatments: Yes What Type of Treatment Did You: Chemotherapy, Surgical Intervention Psychosocial: No Integumentary: No Blood Disorders: No Adverse Reaction/Blood Tranf: No Family Medical History FH: heart disease 19 FATHER 19 MOTHER HEART Physical Exam Vital Signs Vital Signs - First Documented 07/11/19 10:35 Pulse 96 Resp 27 B/P (MAP) 186/85 (118) Pulse Ox 95 O2 Delivery Room Air Capillary Refill : Height, Weight, BMI Height: 5'10.00" Weight: 200lbs. 2.3oz. [id number]; 28.7 BMI Method:Stated General Appearance: WD/WN, no apparent distress HEENT: PERRL/EOMI, normal ENT inspection, TMs normal, pharynx normal, other (negative for Cruz sign or raccoon eyes) Neck: non-tender, full range of motion, supple, normal inspection Cardiovascular: normal peripheral pulses, regular rate, rhythm, no edema Respiratory: chest non-tender, lungs clear, normal breath sounds, no respiratory distress, no accessory muscle use Peripheral Pulses: 2+ Dorsalis Pedis (R), 2+ Left Dors-Pedis (L) Gastrointestinal: normal bowel sounds, soft, no organomegaly (mild left lower quadrant tenderness), tenderness Back: normal inspection, no CVA tenderness; No vertebral tenderness; other (tenderness in the paraspinous region left lower lumbar spine) Extremities: normal range of motion, non-tender, normal inspection, normal capillary refill 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, no motor/sensory deficits, alert, normal mood/affect, oriented x 3 Skin: normal color, warm/dry [place] Coma Score Best Eye Response: (4) Open Spontaneously Best Verbal Response: (5) Oriented Best Motor Response: (6) Obeys Commands [place] Total: 15 Progress/Results/Core Measures Results/Orders Lab Results Laboratory Tests Test 07/11/19 10:46 07/11/19 12:15 Range/Units White Blood Count 11.2 H 4.3-11.0 10^3/uL Red Blood Count 4.94 4.35-5.85 10^6/uL Hemoglobin 14.4 13.3-17.7 G/DL Hematocrit 44 40-54 % Mean Corpuscular Volume 90 80-99 FL Mean Corpuscular Hemoglobin 29 25-34 PG Mean Corpuscular Hemoglobin Concent 33 32-36 G/DL Red Cell Distribution Width 14.2 10.0-14.5 % Platelet Count 260 130-400 10^3/uL Mean Platelet Volume 10.1 7.4-10.4 FL Neutrophils (%) (Auto) 82 H 42-75 % Lymphocytes (%) (Auto) 7 L 12-44 % Monocytes (%) (Auto) 11 0-12 % Eosinophils (%) (Auto) 0 0-10 % Basophils (%) (Auto) 0 0-10 % Neutrophils # (Auto) 9.1 H 1.8-7.8 X 10^3 Lymphocytes # (Auto) 0.8 L 1.0-4.0 X 10^3 Monocytes # (Auto) 1.2 H 0.0-1.0 X 10^3 Eosinophils # (Auto) 0.0 0.0-0.3 10^3/uL Basophils # (Auto) 0.0 0.0-0.1 10^3/uL Neutrophils % (Manual) 81 % Lymphocytes % (Manual) 6 % Monocytes % (Manual) 8 % Eosinophils % (Manual) 2 % Basophils % (Manual) 0 % Band Neutrophils 2 % Reactive Lymphocytes 1 % Blood Morphology Comment NORMAL Sodium Level 143 135-145 MMOL/L Potassium Level 4.1 3.6-5.0 MMOL/L Chloride Level 109 H 98-107 MMOL/L Carbon Dioxide Level 23 21-32 MMOL/L Anion Gap 11 5-14 MMOL/L Blood Urea Nitrogen 13 7-18 MG/DL Creatinine 0.90 0.60-1.30 MG/DL Estimat Glomerular Filtration Rate > 60 BUN/Creatinine Ratio 14 Glucose Level 151 H 70-105 MG/DL Calcium Level 8.9 8.5-10.1 MG/DL Corrected Calcium 9.1 8.5-10.1 MG/DL Total Bilirubin 0.7 0.1-1.0 MG/DL Aspartate Amino Transf (AST/SGOT) 33 5-34 U/L Alanine Aminotransferase (ALT/SGPT) 37 0-55 U/L Alkaline Phosphatase 192 H 40-136 U/L Total Creatine Kinase 194 30-200 U/L Troponin I < 0.028 <0.028 NG/ML C-Reactive Protein High Sensitivity 10.85 H 0.00-0.50 MG/DL B-Type Natriuretic Peptide 491.4 H <100.0 PG/ML Total Protein 6.2 L 6.4-8.2 GM/DL Albumin 3.8 3.2-4.5 GM/DL Urine Color YELLOW Urine Clarity CLEAR Urine pH 5.5 5-9 Urine Specific [place] 1.020 1.016-1.022 Urine Protein TRACE NEGATIVE Urine Glucose (UA) NEGATIVE NEGATIVE Urine Ketones NEGATIVE NEGATIVE Urine Nitrite NEGATIVE NEGATIVE Urine Bilirubin NEGATIVE NEGATIVE Urine Urobilinogen 1.0 < = 1.0 MG/DL Urine Leukocyte Esterase NEGATIVE NEGATIVE Urine RBC (Auto) NEGATIVE NEGATIVE Urine RBC NONE /HPF Urine WBC NONE /HPF Urine Squamous Epithelial Cells RARE /HPF Urine Crystals NONE /LPF Urine Bacteria NEGATIVE /HPF Urine Casts NONE /LPF Urine Mucus SMALL H /LPF Urine Culture Indicated NO My Orders Orders - LAURA YOUNG Ekg Tracing (07/11/19 10:40) Continuous Ekg Monitoring (07/11/19 10:46) Troponin I (07/11/19 10:46) BNP (07/11/19 10:46) Cbc With Automated Diff (07/11/19 10:46) Comprehensive Metabolic Panel (07/11/19 10:46) Hs C Reactive Protein (07/11/19 10:46) Chest 1 View, Ap/Pa Only (07/11/19 10:46) Orthostatic Vital Signs (Adult (07/11/19 10:46) Ua Culture If Indicated (07/11/19 10:46) Ct Abdomen/Pelvis W (07/11/19 10:46) Ct Head/Cervical Spine Wo (07/11/19 10:46) Ed Iv/Invasive Line Start (07/11/19 10:46) Ns Iv 1000 Ml (Sodium Chloride 0.9%) (07/11/19 10:46) Manual Differential (07/11/19 10:46) Creatine Kinase (07/11/19 10:46) Iohexol Injection (Omnipaque 350 Mg/Ml 1 (07/11/19 11:15) Received Contrast (Hold Metformin- Contr (07/11/19 11:15) Ns (Ivpb) (Sodium Chloride 0.9% Ivpb Bag (07/11/19 11:15) Medications Given in ED Current Medications Medications Dose Ordered Sig/Purnima Route Start Time Stop Time Status Last Admin Dose Admin Iohexol 100 ml ONCE ONCE IV 07/11/19 11:15 07/11/19 11:18 DC 07/11/19 11:24 94 ML Sodium Chloride 100 ml ONCE ONCE IV 07/11/19 11:15 07/11/19 11:18 DC 07/11/19 11:25 80 ML Vital Signs/I&O 07/11/19 10:35 Pulse 96 Resp 27 B/P (MAP) 186/85 (118) Pulse Ox 95 O2 Delivery Room Air Progress Progress Note #1: Time: 12:12 Progress Note CRP is markedly elevated, white count is marginal. We'll see if we get a urine out of him have the chest x-ray is unremarkable. Progress Note #2: Time: 14:04 Progress Note We're unable to make contact with Dr. Briseno for a consult but I do not suspect he'll need an ERCP today. He will be evaluated further for his disability and we have offered to send him either to the ER in [place] for further evaluation for his disability and consult with GI or we could keep him here for debility. His says that they have no problems getting him around between her grandson and she. She would prefer to just take him home. She would like to follow up with the GI doctor outpatient if the ERCP does not need to be done today. He does not have an elevated bilirubin and he is not having any abdominal pain presently. I would be reasonable to set him up to call the clinic of Dr. Briseno, gastroenterology and request outpatient follow-up. I also encourage her to follow-up with the primary care doctor, Dr. Martins to help coordinate this. We have given her return precautions and she is happy with this plan. Made contact with his clinic in [place] and set him up for an appointment on Thursday at 8:30. Initial ECG Impression Date: Jul 11, 2019 Initial ECG Impression Time: 10:39 Initial ECG Rate: 90 Initial ECG Rhythm: Normal Sinus Initial ECG Intervals: Normal Initial ECG Impression: Normal Initial ECG Comparisson: Unchanged Comment Normal sinus rhythm without ST elevation or depression. No change from previous EKGs. Diagnostic Imaging Diagonstic Imaging: Xray Plain Films/CT/US/NM/MRI: chest [facility] [place] [place] NAME: TESSA MENDOZA [facility] REC#: [id number] PT STATUS: REG ER : 1930 PHYSICIAN: LAURA YOUNG MD ADMIT DATE: 07/11/19/ER Draft Date of Exam:07/11/19 CHEST 1 VIEW, AP/PA ONLY INDICATION: Fall. TIME OF EXAM: 11:40 a.m. COMPARISON: Correlation is made with prior chest from 09/05/2010. FINDINGS: Patient has undergone median sternotomy and CABG. Left chest wall port has been removed. The heart is enlarged. Lungs appear to be clear of acute infiltrates. There is some minimal linear scarring or atelectasis in the left base. No effusion or pneumothorax is detected. IMPRESSION: No acute cardiopulmonary process is detected. Dictated on workstation # [id number] Dict: 07/11/19 1148 Trans: 07/11/19 1152 [id number] [id number] Interpreted by: MAGNUS SANTOS MD Electronically signed by: Reviewed: Reviewed by Me Diagonstic Imaging: CT Plain Films/CT/US/NM/MRI: c-spine, head Comments [facility] [place] [place] NAME: TESSA MENDOZA [facility] REC#: [id number] PT STATUS: REG ER : 1930 PHYSICIAN: LAURA YOUNG MD ADMIT DATE: 07/11/19/ER Draft Date of Exam:07/11/19 CT HEAD/CERVICAL SPINE WO PROCEDURE: CT head and CT cervical spine without contrast. TECHNIQUE: Multiple contiguous axial images were obtained through the brain and cervical spine without the use of intravenous contrast. Sagittal and coronal reformations through the cervical spine were then performed. Auto Exposure Controls were utilized during the CT exam to meet ALARA standards for radiation dose reduction. INDICATION: Recent fall. COMPARISON: No prior studies are available for comparison. FINDINGS: CT HEAD: Ventricles and sulci are prominent consistent with cerebral atrophy. There is significant periventricular hypodensity noted consistent with senescent change and chronic microvascular ischemia. No sulcal effacement or midline shift is detected. No acute intra-axial or extra-axial hemorrhage is detected. Cisterns are patent. Visualized paranasal sinuses are clear. IMPRESSION: Chronic and senescent changes. No acute intracranial process is detected. CT CERVICAL SPINE: Curvature of the cervical spine is normal. There is minimal anterolisthesis of C2 on C3 as well as retrolisthesis of C3 on C4 and C4 on C5. Severe multilevel degenerative disc disease is noted with variable disc space narrowing and marginal spurring. There is multilevel facet arthropathy. No fractures are identified. The prevertebral tissues are within normal limits. The odontoid is intact. IMPRESSION: Severe cervical spondylosis. No acute bony abnormality is identified. Dictated on workstation # [id number] Dict: 07/11/19 1130 Trans: 07/11/19 1141 [id number] Interpreted by: MAGNUS SANTOS MD Electronically signed by: Reviewed: Reviewed by Nd Diagonstic Imaging: CT (with IV contrast) Plain Films/CT/US/NM/MRI: abdomen, pelvis Comments [facility] [place] [place] NAME: TESSA MENDOZA MED REC#: [id number] PT STATUS: REG ER : 1930 PHYSICIAN: LAURA YOUNG MD ADMIT DATE: 07/11/19/ER Draft Date of Exam:07/11/19 CT ABDOMEN/PELVIS W PROCEDURE: CT abdomen and pelvis with contrast. TECHNIQUE: Multiple contiguous axial images were obtained through the abdomen and pelvis after administration of intravenous contrast. Auto Exposure Controls were utilized during the CT exam to meet ALARA standards for radiation dose reduction. INDICATION: Fall, bruising. COMPARISON: May 04, 2014. FINDINGS: Mild bibasilar scarring and/or fibrosis. Median sternotomy. Moderate-sized hiatal hernia. Cholecystectomy. Calcified hepatic granuloma. Heterogeneous enhancement of the central aspect of the right hepatic lobe is noted though this appears homogeneous and nonpersistent on delayed imaging. A new round 0.7 cm hyperdensity is noted within the inferior aspect of the common bile duct with the common bile duct appearing minimally more prominent than the prior exam. This new hyperdensity is best seen on series 2, image 36 and series 601 image 28. The spleen is unremarkable. The adrenal glands are unremarkable. The pancreas is unremarkable. 3.2 cm hypodensity is noted within the right upper quadrant of the abdomen, anterior to the right kidney. This does not appear significantly changed since 2013, suggesting a benign etiology. Bilateral peripelvic cysts are present. Scattered regions of cortical thinning. The kidneys are otherwise unremarkable. Extensive vascular calcifications within the abdominal aorta and its branch vessels without aneurysmal dilatation of the abdominal aorta. Small fat-containing umbilical hernia. Small fat-containing left inguinal hernia. The urinary bladder is predominantly decompressed therefore not optimally evaluated. The appendix is unremarkable. Postsurgical changes within the distal sigmoid colon. Moderate amount of stool within the colon. No bowel obstruction or pneumatosis. No significant adenopathy, free air, or free fluid within the abdomen or pelvis. Scattered osseous degenerative changes without acute osseous abnormality. Rounded sclerotic focus is present within the L3 vertebral body, this was present though has increased in size since 2013. IMPRESSION: 1. Suspected choledocholithiasis. The common bile duct is minimally more prominent than the prior examination in 2016. 2. Moderate-sized hiatal hernia. 3. Heterogeneous enhancement of the liver, felt to simply relate to phase of enhancement as this is not reproduced on delayed imaging. 4. Bilateral renal peripelvic cysts. 5. Advanced vascular calcifications. 6. Round sclerotic lesion within the L3 vertebral body. As this has gradually increased in size since 2013, this suggests a nonaggressive process such as a bone island. Given gradual change since 2013, osseous metastatic disease is felt unlikely. 7. Additional postsurgical and chronic findings, as above. Dictated on workstation # [id number] Dict: 07/11/19 1144 Trans: 07/11/19 1208 [id number] [id number] Interpreted by: EVONNE GREY MD Electronically signed by: Reviewed: Reviewed by Me Consults : Consulting Physician: KINGA PRINCE DO Consults Notes Discussed the case and he feels that since the alkaline phosphatase is elevated he would be reasonable to get an MRCP or send for ERCP and definitive care. Departure Impression Primary Impression: Fall Qualified Codes: W19.XXXA - Unspecified fall, initial encounter Additional Impressions: Acute right hip pain Abdominal pain Qualified Codes: R10.84 - Generalized abdominal pain Acquired dilation of bile duct Disposition: HOME, SELF-CARE Condition: Stable Departure-Patient Inst. Decision time for Depature: 14:30 Referrals: SIMIN MARTINS MD (PCP/Family) Primary Care Physician Patient Instructions: Endoscopic Retrograde Cholangiopancreatography, Hip Pain (DC) Add. Discharge Instructions: You have an appointment with Dr. Briseno, gastroenterology to evaluate your biliary duct to see if you need to have an ERCP. Your appointment is on Thursday at [address] Briseno[facility]. The phone number is [phone] If you need to change the time or date then call his clinic directly. If you have other concerns follow up with your primary care doctor. He may be able to help you weakness and set him up for physical therapy. LAURA YOUNG Jul 11, 2019 10:51
[2019-07-11 10:53] LABS: BASOPHILS % (AUTO) 0 % (0-10); EOSINOPHILS % (AUTO) 0 % (0-10); HEMATOCRIT 44 % (40-54); HEMOGLOBIN 14.4 G/DL (13.3-17.7); LYMPHOCYTES # (AUTO) 0.8 X 10^3 (1.0-4.0); LYMPHOCYTES % (AUTO) 7 % (12-44); MEAN CORPUSCULAR HEMOGLOBIN 29 PG (25-34); MEAN CORPUSCULAR HGB CONC 33 G/DL (32-36); MEAN CORPUSCULAR VOLUME 90 FL (80-99); MEAN PLATELET VOLUME 10.1 FL (7.4-10.4); MONOCYTES # (AUTO) 1.2 X 10^3 (0.0-1.0); MONOCYTES % (AUTO) 11 % (0-12); NEUTROPHILS # (AUTO) 9.1 X 10^3 (1.8-7.8); NEUTROPHILS % (AUTO) 82 % (42-75); PLATELET COUNT 260 10^3/uL (130-400); RED CELL DISTRIBUTION WIDTH 14.2 % (10.0-14.5); WHITE BLOOD COUNT 11.2 10^3/uL (4.3-11.0)
[2019-07-11 11:09] LABS: ALANINE AMINOTRANSFERASE 37 U/L (0-55); ALBUMIN 3.8 GM/DL (3.2-4.5); ALKALINE PHOSPHATASE 192 U/L (40-136); BILIRUBIN,TOTAL 0.7 MG/DL (0.1-1.0); BUN/CREATININE RATIO 14; CALCIUM 8.9 MG/DL (8.5-10.1); CARBON DIOXIDE 23 MMOL/L (21-32); CHLORIDE 109 MMOL/L (98-107); GFR ESTIMATED > 60; GLUCOSE 151 MG/DL (70-105); POTASSIUM 4.1 MMOL/L (3.6-5.0); SODIUM 143 MMOL/L (135-145); TOTAL PROTEIN 6.2 GM/DL (6.4-8.2)
[2019-07-11] MEDS ORDERED: NS 100 ML (IVPB) BAG IV ONE (11:15)
[2019-07-11] MEDS ORDERED: IOHEXOL 350 MG/ML 100 ML (OMNIPAQUE 350) VIAL IV ONE (11:15)
[2019-07-11] MEDS ORDERED: HOLD METFORMIN - RECEIVED CONTRAST 20 ML VIAL IV SCH (11:15)
[2019-07-11 11:21] LABS: CREATINE KINASE 194 U/L (30-200)
[2019-07-11 11:30] LABS: BAND NEUTROPHILS 2 %; BASOPHILS % (MANUAL) 0 %; EOSINOPHILS % (MANUAL) 2 %; LYMPHOCYTES % (MANUAL) 6 %; MONOCYTES % (MANUAL) 8 %; NEUTROPHILS % (MANUAL) 81 %; RBC MORPH NORMAL; REACTIVE LYMPHOCYTES 1 %
--- NOTE | 2019-07-11 11:42 | Diagnostic Imaging Report ---
PROCEDURE: CT head and CT cervical spine without contrast. TECHNIQUE: Multiple contiguous axial images were obtained through the brain and cervical spine without the use of intravenous contrast. Sagittal and coronal reformations through the cervical spine were then performed. Auto Exposure Controls were utilized during the CT exam to meet ALARA standards for radiation dose reduction. INDICATION: Recent fall. COMPARISON: No prior studies are available for comparison. FINDINGS: CT HEAD: Ventricles and sulci are prominent consistent with cerebral atrophy. There is significant periventricular hypodensity noted consistent with senescent change and chronic microvascular ischemia. No sulcal effacement or midline shift is detected. No acute intra-axial or extra-axial hemorrhage is detected. Cisterns are patent. Visualized paranasal sinuses are clear. IMPRESSION: Chronic and senescent changes. No acute intracranial process is detected. CT CERVICAL SPINE: Curvature of the cervical spine is normal. There is minimal anterolisthesis of C2 on C3 as well as retrolisthesis of C3 on C4 and C4 on C5. Severe multilevel degenerative disc disease is noted with variable disc space narrowing and marginal spurring. There is multilevel facet arthropathy. No fractures are identified. The prevertebral tissues are within normal limits. The odontoid is intact. IMPRESSION: Severe cervical spondylosis. No acute bony abnormality is identified. Dictated by: Dictated on workstation # [id number]
--- NOTE | 2019-07-11 11:53 | Diagnostic Imaging Report ---
INDICATION: Fall. TIME OF EXAM: 11:40 a.m. COMPARISON: Correlation is made with prior chest from 09/05/2010. FINDINGS: Patient has undergone median sternotomy and CABG. Left chest wall port has been removed. The heart is enlarged. Lungs appear to be clear of acute infiltrates. There is some minimal linear scarring or atelectasis in the left base. No effusion or pneumothorax is detected. IMPRESSION: No acute cardiopulmonary process is detected. Dictated by: Dictated on workstation # [id number]
--- NOTE | 2019-07-11 12:09 | Diagnostic Imaging Report ---
PROCEDURE: CT abdomen and pelvis with contrast. TECHNIQUE: Multiple contiguous axial images were obtained through the abdomen and pelvis after administration of intravenous contrast. Auto Exposure Controls were utilized during the CT exam to meet ALARA standards for radiation dose reduction. INDICATION: Fall, bruising. COMPARISON: May 04, 2014. FINDINGS: Mild bibasilar scarring and/or fibrosis. Median sternotomy. Moderate-sized hiatal hernia. Cholecystectomy. Calcified hepatic granuloma. Heterogeneous enhancement of the central aspect of the right hepatic lobe is noted though this appears homogeneous and nonpersistent on delayed imaging. A new round 0.7 cm hyperdensity is noted within the inferior aspect of the common bile duct with the common bile duct appearing minimally more prominent than the prior exam. This new hyperdensity is best seen on series 2, image 36 and series 601 image 28. The spleen is unremarkable. The adrenal glands are unremarkable. The pancreas is unremarkable. 3.2 cm hypodensity is noted within the right upper quadrant of the abdomen, anterior to the right kidney. This does not appear significantly changed since 2013, suggesting a benign etiology. Bilateral peripelvic cysts are present. Scattered regions of cortical thinning. The kidneys are otherwise unremarkable. Extensive vascular calcifications within the abdominal aorta and its branch vessels without aneurysmal dilatation of the abdominal aorta. Small fat-containing umbilical hernia. Small fat-containing left inguinal hernia. The urinary bladder is predominantly decompressed therefore not optimally evaluated. The appendix is unremarkable. Postsurgical changes within the distal sigmoid colon. Moderate amount of stool within the colon. No bowel obstruction or pneumatosis. No significant adenopathy, free air, or free fluid within the abdomen or pelvis. Scattered osseous degenerative changes without acute osseous abnormality. Rounded sclerotic focus is present within the L3 vertebral body, this was present though has increased in size since 2013. IMPRESSION: 1. Suspected choledocholithiasis. The common bile duct is minimally more prominent than the prior examination in 2016. 2. Moderate-sized hiatal hernia. 3. Heterogeneous enhancement of the liver, felt to simply relate to phase of enhancement as this is not reproduced on delayed imaging. 4. Bilateral renal peripelvic cysts. 5. Advanced vascular calcifications. 6. Round sclerotic lesion within the L3 vertebral body. As this has gradually increased in size since 2013, this suggests a nonaggressive process such as a bone island. Given gradual change since 2013, osseous metastatic disease is felt unlikely. 7. Additional postsurgical and chronic findings, as above. Dictated by: Dictated on workstation # [id number]
[2019-07-11 12:23] LABS: BILIRUBIN,URINE NEGATIVE (NEGATIVE); CLARITY,URINE CLEAR; COLOR,URINE YELLOW; GLUCOSE, URINE (UA) NEGATIVE (NEGATIVE); KETONES,URINE NEGATIVE (NEGATIVE); LEUKOCYTE ESTERASE ,URINE NEGATIVE (NEGATIVE); NITRITE,URINE NEGATIVE (NEGATIVE); PH,URINE 5.5 (5-9); PROTEIN,URINE TRACE (NEGATIVE)
[2019-07-11 12:32] LABS: BACTERIA,URINE NEGATIVE /HPF; SQUAMOUS EPITHELIAL CELL,UR RARE /HPF
--- NOTE | 2019-07-11 14:00 | NUR ---
Unable to obtain accurate orthostatic VS d/t pt weakness. Provider notified.
[2019-07-11 14:45] VITALS: BP 172/94
== END 2019-07-11 14:45 | disposition home or self-care (01) ==
LOC: EDUNIT# 10:34 → ER 10:34
DX: M25.551 Pain in right hip (principal); K83.8 Other specified diseases of biliary tract; R10.32 Left lower quadrant pain; F03.90 Unspecified dementia, unspecified severity, without behavioral disturbance, psychotic disturbance, mood disturbance, and anxiety; I10 Essential (primary) hypertension; I25.10 Atherosclerotic heart disease of native coronary artery without angina pectoris; E78.00 Pure hypercholesterolemia, unspecified; K21.9 Gastro-esophageal reflux disease without esophagitis; R40.2142 Coma scale, eyes open, spontaneous, at arrival to emergency department; R40.2252 Coma scale, best verbal response, oriented, at arrival to emergency department; R40.2362 Coma scale, best motor response, obeys commands, at arrival to emergency department; Z85.038 Personal history of other malignant neoplasm of large intestine; Z85.72 Personal history of non-Hodgkin lymphomas; Z79.82 Long term (current) use of aspirin; Z87.891 Personal history of nicotine dependence; Z95.1 Presence of aortocoronary bypass graft; Z90.49 Acquired absence of other specified parts of digestive tract; W19.XXXA Unspecified fall, initial encounter
CPT/HCPCS: 36415; 70450; 71045; 72125; 74177; 80053; 81000; 82550; 83880; 84484; 85007; 85027; 86141; 93005; 96360